=== PATIENT | male | born 1945 | race Caucasian/White ===

== ENCOUNTER 2016-02-17 18:23 | Emergency (ER) | payer MEDICARE, OTHER ==
[2016-02-17] MEDS ORDERED: ACETYLCYSTEIN 20 % 6,000 MG/30 ML VIAL PO ONE (18:35)
[2016-02-17] MEDS ORDERED: HYDROcodone 7.5MG/APAP 325MG 1 EA TAB PO ONE (18:35)
[2016-02-17] MEDS ORDERED: SODIUM CHLORIDE 0.9% 1000ML 1,000 ML IVS ONE (18:36)
--- NOTE | 2016-02-17 19:27 | CT ---
EXAM DESCRIPTION: CT CHEST WITH INTRAVENOUS CONTRAST CLINICAL HISTORY: Elevated D-dimer and right-sided chest pain. Evaluation for pulmonary embolism COMPARISON: Chest x-ray done on the same day. TECHNIQUE: CT of the chest was performed with intravenous contrast using pulmonary embolism protocol, followed by CTA of the pulmonary arterial vasculature, with 3D reconstruction of the pulmonary arterial vasculature. The patient was injected with intravenous contrast. FINDINGS: There are no filling defects in the main pulmonary trunk, first order or the visualized lower order branches of the bilateral pulmonary arteries, to suggest pulmonary embolism. There is no evidence of clinically significant thoracic aortic aneurysm or thoracic aortic dissection. There is no evidence of clinically significant pericardial effusion. There are no airspace infiltrates, pleural effusions or pneumothoraces in the visualized lung molina. Few benign subcentimeter calcified granulomas are seen in the lung molina. There is no pathological axillary, supraclavicular, mediastinal or hilar lymphadenopathy. The visualized thoracic bony ribcage appears unremarkable. The thoracic spine shows mild degenerative change. There is a small hiatal hernia. The visualized upper abdominal structures seen on the exam appear unremarkable. IMPRESSION: There is no pulmonary embolism, airspace infiltrates or pleural effusions. There is no thoracic aortic aneurysm or dissection. Electronically signed by: Phil Dukes MD 02/17/2016 19:25
[2016-02-17 19:48] VITALS: O2SAT 99
[2016-02-17] MEDS ORDERED: predniSONE 20 MG TAB PO ONE (19:54)
--- NOTE | 2016-02-17 19:59 | ED.PDOC ---
History of Present Illness - General Chief Complaint: Chest Pain/DE Stated Complaint: chest pain Time Seen by Provider: 02/17/16 18:30 Source: patient Exam Limitations: no limitations - History of Present Illness Initial Comments: the patient is a 70-year-old male presenting secondary to right lateral chest pain with breathing and coughing. This started less than 24 hours ago. Cough is nonproductive. No fevers. He went clinic and had lab work performed as well as a chest x-ray. Lab work is reassuring with the exception that the d-dimer is mildly elevated and the chest x-ray is normal. He is sent to the emergency room due to concern for possible pulmonary embolus and evaluation thereof. He does not have any shortness of breath. He does not have any palpitations. He is not taking hormone therapy. He has not had any leg pain or swelling. He has not had a DVT in the past. He has not had any recent immobilization. He is not hypoxic here or short of breath. Pain is to the right lateral rib cage is taking a big deep breath or coughing. There is no tenderness to palpation. There is no obvious bruising. There is no crepitus. Timing/Duration: 24 hours Severity: mild Improving Factors: immobilization Worsening Factors: movement Associated Symptoms: chest pain, cough Allergies/Adverse Reactions: Allergies NO KNOWN ALLERGY Allergy (Verified 02/17/16 18:44) Home Medications: Ambulatory Orders Aspirin [Baby Aspirin] 81 mg PO DAILY 11/07/13 Atorvastatin Calcium [Lipitor] 40 mg PO BEDTIME 11/07/13 Calcium-Magnesium W/ Vitamin D [Citracal Calcium+D Slow R] 1 tab PO DAILY Famotidine [Pepcid Tab] 20 mg PO DAILY 11/07/13 Metoprolol Succinate [Metoprolol Succinate ER] 25 mg PO DAILY 11/07/13 Multiple Vitamins W/ Minerals [Centrum Silver] 1 tab PO DAILY 11/07/13 Valsartan-Hydrochlorothiazide [Valsartan/Hydrochlorothia 320-12.5 mg] 1 tab PO DAILY 11/07/13 Wvoullokpuhlm-Jhwe-Hfnylsbhsf [Fioricet] 1 ea PO Q8H PRN #21 tab 02/17/16 Review of Systems - Review of Systems Constitutional: States: no symptoms reported EENTM: States: no symptoms reported Respiratory: States: cough Cardiology: States: chest pain Gastrointestinal/Abdominal: States: no symptoms reported Genitourinary: States: no symptoms reported Musculoskeletal: States: no symptoms reported Skin: States: no symptoms reported Neurological: States: no symptoms reported Endocrine: States: no symptoms reported All other Systems: No Change from Baseline Past Medical History (General) - Patient Medical History Hx Stroke: No Hx Congestive Heart Failure: No Hx Hypertension: Yes Hx Diabetes: Yes - Vaccination History Hx Influenza Vaccination: Yes - 2015 Hx Pneumococcal Vaccination: Yes - 2013 - Social History Hx Tobacco Use: No Family Medical History - Family History Father Living Status: Age at (years of age): 43 Cause of : [place] Hx Family Hypertension: Yes Physical Exam - Physical Exam General Appearance: Alert, Comfortable, No apparent distress Eye Exam: bilateral normal Ears, Nose, Throat: normal ENT inspection Neck: full range of motion, supple Respiratory: chest non-tender, lungs clear, normal breath sounds, no respiratory distress, no accessory muscle use Cardiovascular/Chest: normal peripheral pulses, regular rate, rhythm, no edema Peripheral Pulses: radial,right: 2+, radial,left: 2+ Gastrointestinal/Abdominal: non tender, soft Rectal Exam: deferred Back Exam: normal inspection, no CVA tenderness Extremity: normal range of motion, non-tender, normal inspection, no pedal edema , normal capillary refill Neurologic: alert, normal mood/affect, oriented x 3 Skin Exam: normal color Comments: Vital Signs - 24 hr 02/17/16 02/17/16 18:23 19:20 Temperature 98.3 F Pulse Rate [ 73 70 Apical] Respiratory 20 20 Rate Blood Pressure 122/67 132/70 [Left Arm] O2 Sat by Pulse 93 L 99 Oximetry Progress - Progress Progress: 02/17/16 20:02 the patient is a 70-year-old male presenting with right-sided pleurisy. Source is uncertain. No evidence overtly of infection at this time. He was given 1 dose of oral prednisone here. He will be written for Fioricet for as needed use. He can use balloons as an incentive spirometer at home. He does need to twist and turn and do stretches to help reduce the pleurisy. He needs to take deep breaths and cough. ER warnings were given for any acute worsening. Otherwise, he needs to follow-up with his primary care doctor early next week. - Results/Orders Results/Orders: EKG shows normal sinus rhythm with a left anterior fascicular block. No acute ST segment changes concerning for ischemia. Chest x-ray appears grossly normal. CBC, CMP, cardiac enzymes and coag panel appear grossly normal. D-dimer is mildly elevated at 300. Laboratory Tests 02/17/16 18:40 PT 11.7 INR 1.040 PTT (SP) 34.0 Creatine Kinase 72 CK-MB (CK-2) 0.8 CK-MB (CK-2) % Not Reportable Troponin I < 0.02 CT angiogram of the chest is negative for any pulmonary embolus or large vessel pathology. No evidence of significant infiltrate. No pneumothorax. Departure - Departure Clinical Impression: Pleurisy without effusion Disposition: Discharge to Home or Self Care Condition: Fair Departure Forms: ED Discharge - Pt. Copy, Patient Portal Self Enrollment Instructions: DI for Pleurisy Activity: increase activity as tolerated Referrals: Casey Salazar III, MD [Primary Care Provider] - 1-2 Weeks Prescriptions: Ervyduhhknual-Uccb-Tipspdrgja [Fioricet] 1 ea PO Q8H PRN #21 tab PRN Reason: Pain Home Medications: Ambulatory Orders Aspirin [Baby Aspirin] 81 mg PO DAILY 11/07/13 Atorvastatin Calcium [Lipitor] 40 mg PO BEDTIME 11/07/13 Calcium-Magnesium W/ Vitamin D [Citracal Calcium+D Slow R] 1 tab PO DAILY Famotidine [Pepcid Tab] 20 mg PO DAILY 11/07/13 Metoprolol Succinate [Metoprolol Succinate ER] 25 mg PO DAILY 11/07/13 Multiple Vitamins W/ Minerals [Centrum Silver] 1 tab PO DAILY 11/07/13 Valsartan-Hydrochlorothiazide [Valsartan/Hydrochlorothia 320-12.5 mg] 1 tab PO DAILY 11/07/13 Basabqgbwfcqq-Opll-Uaebozmfdt [Fioricet] 1 ea PO Q8H PRN #21 tab 02/17/16 Additional Instructions: the patient is a 70-year-old male presenting with right-sided pleurisy. Source is uncertain. No evidence overtly of infection at this time. He was given 1 dose of oral prednisone here. He will be written for Fioricet for as needed use. He can use balloons as an incentive spirometer at home. He does need to twist and turn and do stretches to help reduce the pleurisy. He needs to take deep breaths and cough. ER warnings were given for any acute worsening. Otherwise, he needs to follow-up with his primary care doctor early next week.
[2016-02-17 20:21] VITALS: BP 137/77; TEMP 97.9
== END 2016-02-17 20:21 | disposition home or self-care (01) ==
LOC: ER 18:23
DX: R09.1 Pleurisy (principal); I10 Essential (primary) hypertension; E11.9 Type 2 diabetes mellitus without complications; Z79.82 Long term (current) use of aspirin; Z79.899 Other long term (current) drug therapy; Z82.49 Family history of ischemic heart disease and other diseases of the circulatory system
CPT/HCPCS: 36415; 71020; 71275; 80053; 82550; 82553; 84484; 85025; 85379; 85610; 85730; J7030; J7512

== ENCOUNTER → 2016-05-12 | Outpatient (CLI) | payer MEDICARE, OTHER | LOC: GMAL 10:30 | PROVIDERS: ATTEND Family Medicine | DX: D51.3 Other dietary vitamin B12 deficiency anemia (principal); E55.9 Vitamin D deficiency, unspecified; I10 Essential (primary) hypertension; E11.9 Type 2 diabetes mellitus without complications ==

== ENCOUNTER → 2016-08-18 | Outpatient (CLI) | payer MEDICARE, OTHER | END | disposition home or self-care (01) | LOC: LAB.O 10:10 | PROVIDERS: ATTEND Family Medicine | DX: R74.0 Nonspecific elevation of levels of transaminase and lactic acid dehydrogenase [LDH] (principal) ==

== ENCOUNTER → 2016-11-23 | Outpatient (CLI) | payer MEDICARE, OTHER | END | disposition home or self-care (01) | LOC: GMAL 10:34 | PROVIDERS: ATTEND Family Medicine | DX: Z12.5 Encounter for screening for malignant neoplasm of prostate (principal) ==

== ENCOUNTER → 2016-12-01 | Outpatient (CLI) | payer MEDICARE, OTHER | END | disposition home or self-care (01) | LOC: GMAL 14:29 | PROVIDERS: ATTEND Family Medicine | DX: M10.9 Gout, unspecified (principal) ==

== ENCOUNTER → 2017-05-17 | Outpatient (CLI) | payer MEDICARE, OTHER | LOC: GMAL 10:43 | PROVIDERS: ATTEND Family Medicine | DX: E53.8 Deficiency of other specified B group vitamins (principal); E55.9 Vitamin D deficiency, unspecified; Z79.899 Other long term (current) drug therapy ==

== ENCOUNTER 2017-05-20 17:02 | Emergency (ER) | payer MEDICARE, OTHER ==
[2017-05-20] MEDS ORDERED: ACETAMINOPHEN 325 MG TAB PO ONE (17:26)
--- NOTE | 2017-05-20 17:28 | ED.PDOC ---
History of Present Illness - General Chief Complaint: Fever Stated Complaint: Fever, confusion Time Seen by Provider: 05/20/17 17:18 Source: patient, family Exam Limitations: no limitations - History of Present Illness Initial Comments: Patient presents with a fever. He said he got home just [employer] and became confused. His said that he didn't act like he knew where he was. That has since resolved. He has urinary hesitancy that he says is chronic. He denies dysuria or freqency. Denies hematuria. No cough/dyspnea/runny nose. No other complaints today. Timing/Duration: resolved prior to arrival Severity: moderate Improving Factors: nothing Worsening Factors: nothing Associated Symptoms: denies symptoms Allergies/Adverse Reactions: Allergies NO KNOWN ALLERGY Allergy (Verified 05/20/17 17:15) Home Medications: Ambulatory Orders Aspirin [Baby Aspirin] 81 mg PO DAILY 11/07/13 Atorvastatin Calcium [Lipitor] 40 mg PO BEDTIME 11/07/13 Calcium-Magnesium W/ Vitamin D [Citracal Calcium+D Slow R] 1 tab PO DAILY Famotidine [Pepcid Tab] 20 mg PO DAILY 11/07/13 Metoprolol Succinate [Metoprolol Succinate ER] 25 mg PO DAILY 11/07/13 Multiple Vitamins W/ Minerals [Centrum Silver] 1 tab PO DAILY 11/07/13 Valsartan-Hydrochlorothiazide [Valsartan/Hydrochlorothia 320-12.5 mg] 1 tab PO DAILY 11/07/13 Whifdbtgavqur-Vtty-Rjngnvcona [Fioricet] 1 ea PO Q8H PRN #21 tab 02/17/16 Allopurinol [Zyloprim] 100 mg PO DAILY 05/20/17 Azithromycin 250 mg PO DAILY #4 tab 05/20/17 metFORMIN HCL [Glucophage] 500 mg PO BID 05/20/17 Review of Systems - Review of Systems Constitutional: States: see HPI EENTM: States: no symptoms reported Respiratory: States: no symptoms reported Cardiology: States: no symptoms reported Gastrointestinal/Abdominal: States: no symptoms reported Genitourinary: States: no symptoms reported Musculoskeletal: States: no symptoms reported Skin: States: no symptoms reported Neurological: States: see HPI Endocrine: States: no symptoms reported Hematologic/Lymphatic: States: no symptoms reported Past Medical History (General) - Patient Medical History Hx Stroke: No Hx Congestive Heart Failure: No Hx Hypertension: Yes Hx Diabetes: Yes Surgical History: other - Vaccination History Hx Influenza Vaccination: Yes Hx Pneumococcal Vaccination: Yes - Social History Hx Tobacco Use: No Hx Alcohol Use: No Family Medical History - Family History Father Living Status: Age at (years of age): 43 Cause of : [place] Hx Family Hypertension: Yes Physical Exam - Physical Exam General Appearance: Alert Eye Exam: bilateral normal Ears, Nose, Throat: normal ENT inspection Neck: non-tender, full range of motion, supple Respiratory: chest non-tender, lungs clear, normal breath sounds Cardiovascular/Chest: normal peripheral pulses, regular rate, rhythm, no edema Gastrointestinal/Abdominal: normal bowel sounds, non tender, soft Back Exam: no CVA tenderness Extremity: normal range of motion, non-tender 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, no motor/sensory deficits, alert, normal mood/affect, oriented x 3 Skin Exam: normal color Lymphatic: no adenopathy Progress - Progress Progress: 05/20/17 20:03 Laboratory Tests 05/20/17 05/20/17 05/20/17 17:30 17:39 17:39 WBC 12.2 H RBC 4.03 L Hgb 12.5 L Hct 37.2 L MCV 92.2 MCH 31.0 MCHC 33.6 RDW 13.6 Plt Count 176 MPV 8.7 Absolute Neuts (auto) 10.50 H Absolute Lymphs (auto) 0.70 L Absolute Monos (auto) 0.80 Absolute Eos (auto) 0.10 Absolute Basos (auto) 0.10 Neutrophils % 86.3 H Lymphocytes % 5.8 L Monocytes % 6.6 Eosinophils % 0.5 L Basophils % 0.8 Sodium 135 Potassium 4.0 Chloride 101 Carbon Dioxide 22 Anion Gap 16.0 BUN 30 H Creatinine 1.23 BUN/Creatinine Ratio 24.4 H POC Glucose Random Glucose 148 H Serum Osmolality 279.0 Lactic Acid 1.3 Calcium 10.2 Total Bilirubin 0.6 AST 25 ALT 34 Alkaline Phosphatase 58 Serum Total Protein 7.9 Albumin 4.2 Globulin 3.7 H Albumin/Globulin Ratio 1.1 Urine Color Urine Appearance Urine pH Ur Specific [place] Urine Protein Urine Glucose (UA) Urine Ketones Urine Blood Urine Nitrite Urine Bilirubin Urine Urobilinogen Ur Leukocyte Esterase Urine RBC Urine WBC Ur Epithelial Cells Urine Bacteria Group A Strep DNA 05/20/17 05/20/17 05/20/17 17:39 18:00 19:10 WBC RBC Hgb Hct MCV MCH MCHC RDW Plt Count MPV Absolute Neuts (auto) Absolute Lymphs (auto) Absolute Monos (auto) Absolute Eos (auto) Absolute Basos (auto) Neutrophils % Lymphocytes % Monocytes % Eosinophils % Basophils % Sodium Potassium Chloride Carbon Dioxide Anion Gap BUN Creatinine BUN/Creatinine Ratio POC Glucose 142 H Random Glucose Serum Osmolality Lactic Acid Calcium Total Bilirubin AST ALT Alkaline Phosphatase Serum Total Protein Albumin Globulin Albumin/Globulin Ratio Urine Color Yellow Urine Appearance Clear Urine pH 8.5 H Ur Specific [place] 1.020 Urine Protein 30 Urine Glucose (UA) Negative Urine Ketones Negative Urine Blood Trace-intact H Urine Nitrite Negative Urine Bilirubin Negative Urine Urobilinogen 0.2 Ur Leukocyte Esterase Negative Urine RBC 1-3 Urine WBC 0 Ur Epithelial Cells 0 Urine Bacteria 0 Group A Strep DNA Negative Patient disclose later that he had been exposed to strep throat. He was tested here but it was negative. In the absence of another likely source for the fever , he was given Azithromycin in case it was a false negative and also in case there is an occult bacterial infection. This, however, may be viral. I instructed the patient to follow up with his primary physician if the fever lasts longer than 48 more hours. Questions were elicited and answered. Patient voiced understanding and agreement with the plan. Departure - Departure Clinical Impression: Fever in adult Disposition: Discharge to Home or Self Care Departure Forms: ED Discharge - Pt. Copy, Patient Portal Self Enrollment Diet: resume usual diet Activity: increase activity as tolerated Referrals: Casey Salazar III, MD [Primary Care Provider] - 1-2 Weeks Prescriptions: Azithromycin 250 mg PO DAILY #4 tab Home Medications: Ambulatory Orders Aspirin [Baby Aspirin] 81 mg PO DAILY 11/07/13 Atorvastatin Calcium [Lipitor] 40 mg PO BEDTIME 11/07/13 Calcium-Magnesium W/ Vitamin D [Citracal Calcium+D Slow R] 1 tab PO DAILY Famotidine [Pepcid Tab] 20 mg PO DAILY 11/07/13 Metoprolol Succinate [Metoprolol Succinate ER] 25 mg PO DAILY 11/07/13 Multiple Vitamins W/ Minerals [Centrum Silver] 1 tab PO DAILY 11/07/13 Valsartan-Hydrochlorothiazide [Valsartan/Hydrochlorothia 320-12.5 mg] 1 tab PO DAILY 11/07/13 Gwkqmijzugbup-Rtax-Xvfqianadn [Fioricet] 1 ea PO Q8H PRN #21 tab 02/17/16 Allopurinol [Zyloprim] 100 mg PO DAILY 05/20/17 Azithromycin 250 mg PO DAILY #4 tab 05/20/17 metFORMIN HCL [Glucophage] 500 mg PO BID 05/20/17 Additional Instructions: Increase oral fluids. Take medication as prescribed. Use tylenol or ibuprofen for fever relief. Return to the E.R. for worsening of symptoms or new symptoms. See your regular doctor or return to the E.R. if fever lasts longer than 48 more hours.
--- NOTE | 2017-05-20 18:03 | RAD ---
EXAM DESCRIPTION: Chest,2 Views CLINICAL HISTORY: fever COMPARISON: 02/17/2016 FINDINGS: Two views of the chest are submitted. Cardiac silhouette appears normal. No focal parenchymal or pleural disease. No acute bony abnormality. There is no significant pulmonary vascular engorgement. IMPRESSION: No evidence of acute cardiopulmonary disease. Electronically signed by: Gigi Quintana 05/20/2017 6:02 PM CDT
[2017-05-20] MEDS ORDERED: SODIUM CHLORIDE 0.9% 1000ML 1,000 ML IVS ONE (18:18)
[2017-05-20] MEDS ORDERED: AZITHROMYCIN 250 MG TAB PO ONE (18:43)
[2017-05-20 20:07] VITALS: BP 124/75; TEMP 100.8; O2SAT 98
== END 2017-05-20 20:26 | disposition home or self-care (01) ==
LOC: ER 17:02
DX: R50.9 Fever, unspecified (principal); I10 Essential (primary) hypertension; E11.9 Type 2 diabetes mellitus without complications; Z79.82 Long term (current) use of aspirin
CPT/HCPCS: 36415; 71046; 80053; 81001; 82948; 83605; 85025; 87040; 87070; 87651; J7030; Q0144

== ENCOUNTER 2017-05-20 22:41 | Inpatient (IN) | payer MEDICARE, OTHER ==
[2017-05-20] MEDS ORDERED: SODIUM CHLORIDE 0.9% 1000ML 1,000 ML ONE (22:47)
[2017-05-20] MEDS ORDERED: SODIUM CHLORIDE 0.9% 1000ML 1,000 ML IVS ONE (23:00)
[2017-05-20] MEDS ORDERED: cefTRIAXone SODIUM 1 GM in SODIUM CHL 0.9% 50ML MIN-BAG+ 50 ML IVPB ONE (23:34)
[2017-05-20] MEDS ORDERED: VANCOMYCIN HCL INJ 1,000 MG in SODIUM CHLORIDE 0.9% 250ML 250 ML IVPB ONE (23:34)
[2017-05-20] MEDS ORDERED: SODIUM CHL 0.9% 50ML MIN-BAG+ 50 ML IVPB ONE (23:41)
[2017-05-20] MEDS ORDERED: SODIUM CHLORIDE 0.9% 250ML 250 ML ONE (23:41)
[2017-05-20] MEDS ORDERED: cefTRIAXone SODIUM 1 GM VIAL ONE (23:41)
[2017-05-20] MEDS ORDERED: VANCOMYCIN HCL INJ 1,000 MG VIAL IVPB ONE (23:41)
--- NOTE | 2017-05-21 00:13 | CT ---
EXAM: CT head without contrast. INDICATION: AMS. TECHNIQUE: Contiguous axial CT images of the brain. Intravenous contrast: Absent. DLP 859 mGy-cm. This exam was performed according to our departmental dose-optimization program, which includes automated exposure control, adjustment of the mA and/or kV according to patient size and/or use of iterative reconstruction technique. COMPARISON: None. FINDINGS: Subcutaneous: Unremarkable. No acute intracranial hemorrhage. There are mild to moderate periventricular and deep white matter chronic microvascular changes. No midline shift. No mass effect. Ventricles: No hydrocephalus. Crouch-white differentiation preserved. Paranasal sinuses/mastoid air cells: Visualized portions are aerated. Bones/orbits: Visualized portions are unremarkable. IMPRESSION: 1. No CT evidence of acute intracranial hemorrhage. Electronically signed by: Govind Chicas MD 05/21/2017 12:12 AM CDT Workstation: [id number]
--- NOTE | 2017-05-21 00:34 | ED.PDOC ---
History of Present Illness - General Chief Complaint: Fever Stated Complaint: fever, confusion Time Seen by Provider: 05/20/17 22:45 Source: patient, family Exam Limitations: no limitations - History of Present Illness Initial Comments: Patient presents with AMS and fever. He was here earlier today for the same and told to come back if it happens again or worsens. He was started on Azithromycin due to his exposure to strep pharyngitis and unknown source of fever. His family reports they were increasing his fluids and giving him tylenol and Motrin but that his temperature got up to 103. At that point he did not know the date and seemed "out of it". He vomited once and he says that he remembers the vomiting episode. He says he vomited because of some Pedialyte that he was drinking. He says he hates Pedialyte. No other complaints. Denies seizure activity or photophobia. Upon arrival he knows the day but not the month or year. Timing/Duration: 4-6 hours Severity: moderate Improving Factors: nothing Worsening Factors: nothing Associated Symptoms: other - as in HPI Allergies/Adverse Reactions: Allergies NO KNOWN ALLERGY Allergy (Verified 05/20/17 17:15) Home Medications: Ambulatory Orders Aspirin [Baby Aspirin] 81 mg PO DAILY 11/07/13 Atorvastatin Calcium [Lipitor] 40 mg PO BEDTIME 11/07/13 Calcium-Magnesium W/ Vitamin D [Citracal Calcium+D Slow R] 1 tab PO DAILY Famotidine [Pepcid Tab] 20 mg PO DAILY 11/07/13 Metoprolol Succinate [Metoprolol Succinate ER] 25 mg PO DAILY 11/07/13 Multiple Vitamins W/ Minerals [Centrum Silver] 1 tab PO DAILY 11/07/13 Valsartan-Hydrochlorothiazide [Valsartan/Hydrochlorothia 320-12.5 mg] 1 tab PO DAILY 11/07/13 Qrspucsozikey-Bqff-Leaowdtnsu [Fioricet] 1 ea PO Q8H PRN #21 tab 02/17/16 Allopurinol [Zyloprim] 100 mg PO DAILY 05/20/17 Azithromycin 250 mg PO DAILY #4 tab 05/20/17 metFORMIN HCL [Glucophage] 500 mg PO BID 05/20/17 Review of Systems - Review of Systems Constitutional: States: see HPI EENTM: States: no symptoms reported Respiratory: States: no symptoms reported Cardiology: States: no symptoms reported Gastrointestinal/Abdominal: States: see HPI Genitourinary: States: no symptoms reported Musculoskeletal: States: no symptoms reported Skin: States: no symptoms reported Neurological: States: see HPI Endocrine: States: no symptoms reported Hematologic/Lymphatic: States: no symptoms reported Past Medical History (General) - Patient Medical History Hx Seizures: No Hx Stroke: No Hx Dementia: No Hx Asthma: No Hx of COPD: No Hx Cardiac Disorders: No Hx Congestive Heart Failure: No Hx Pacemaker: No Hx Hypertension: Yes Hx Thyroid Disease: No Hx Diabetes: Yes Hx Gastroesophageal Reflux: No Hx Renal Disease: No Hx Cancer: No Hx of HIV: No Hx Hepatitis C: No Hx MRSA: No Surgical History: no surgical history - Vaccination History Hx Tetanus, Diphtheria Vaccination: No Hx Influenza Vaccination: Yes Hx Pneumococcal Vaccination: Yes - Social History Hx Tobacco Use: No Hx Alcohol Use: No Family Medical History - Family History Father Living Status: Age at (years of age): 43 Cause of : [place] Hx Family Hypertension: Yes Physical Exam - Physical Exam General Appearance: Alert, Other - Alert to name and day of the month but not month and year. 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 He and his were informed of the risks and the benefits. At the time of the discussion, he had regained normal mental status and knew the day, month, year, his name, and the location. He and his voiced understanding of the risks and benefits of a lumbar tap and elected to have it done. The lumbar area was prepped and draped in a sterile fashion. Tap was attempted. A small amount of spinal fluid was obtained but not enough to take a sample. A CT head was performed and was negative for acute disease. 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 He was not showing signs of meningitis on physical exam but the AMS and vomiting kept this on the differential. Blood cultures had been taken on the previous visit today. He was admitted to inpatient for fever of unknown origin. Departure - Departure Clinical Impression: Fever of unknown origin Disposition: Admit Patient Condition: Fair Departure Forms: ED Discharge - Pt. Copy, Patient Portal Self Enrollment Diet: other - as per hospitalist Activity: other - as per hospitalist Referrals: Casey Salazar III, MD [Primary Care Provider] - 1-2 Weeks Home Medications: Ambulatory Orders Aspirin [Baby Aspirin] 81 mg PO DAILY 11/07/13 Atorvastatin Calcium [Lipitor] 40 mg PO BEDTIME 11/07/13 Calcium-Magnesium W/ Vitamin D [Citracal Calcium+D Slow R] 1 tab PO DAILY Famotidine [Pepcid Tab] 20 mg PO DAILY 11/07/13 Metoprolol Succinate [Metoprolol Succinate ER] 25 mg PO DAILY 11/07/13 Multiple Vitamins W/ Minerals [Centrum Silver] 1 tab PO DAILY 11/07/13 Valsartan-Hydrochlorothiazide [Valsartan/Hydrochlorothia 320-12.5 mg] 1 tab PO DAILY 11/07/13 Qnkjkrltzyipw-Sdai-Uwazaxwigh [Fioricet] 1 ea PO Q8H PRN #21 tab 02/17/16 Allopurinol [Zyloprim] 100 mg PO DAILY 05/20/17 Azithromycin 250 mg PO DAILY #4 tab 05/20/17 metFORMIN HCL [Glucophage] 500 mg PO BID 05/20/17
--- NOTE | 2017-05-21 00:43 | HP ---
SUPERVISING PHYSICIAN: Portillo Ramey M.D. HISTORY OF PRESENT ILLNESS: Mr. Ahumada is a 72 year-old male patient that initially presented to the E. R. on 05/20/17 earlier in the day complaining of a fever and some mild confusion that occurred just prior to his arrival to the E. R. His noted that he was not acting himself but had resolved prior to going to the E. R. In the E. R., no acute findings were noted other than he was running a fever on admission initially of 103.4. A Strep screen was completed which was negative. After further evaluation by the E. R. physician, it was felt that the patient had a possible Strep infection resulting in his fever and was treated with azithromycin and discharged home. The patient then presented back to the E. R. approximately 3 to 4 hours after discharge initially with continued fever of 100.8. He once again was having some confusion during his fever and was not quite himself, according to his daughter. The patient was somewhat disoriented. He knew where he was but could not remember the year or the date. He had obvious rigors and chills. Further workup in the Emergency Department on the next admission included a lumbar puncture which was unsuccessful with the patient presenting with a mild headache. There was no other meningeal signs. The E. R. physician, Dr. Francois requested that the patient now be admitted to the Medical/Surgical floor for further treatment and evaluation of a fever of unknown origin. He was sent home initially on azithromycin and on this current E. R. visit was given a gram of Rocephin and started on vancomycin for broad spectrum coverage, and now is to be admitted to the Medical/Surgical floor for further evaluation and treatment. Blood cultures were collected on the previous E. R. visit along with Strep cultures which were negative and continued to be negative on the current admission. There was also mention of recent exposure to a grandson within the last week that had a positive Strep pharyngitis. PAST MEDICAL HISTORY: 1. Coronary artery disease. 2. Hypertension with a recent myocardial perfusion study February 2017 showing an ejection fraction of approximately 69%. 3. 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 4. Febrile prostatitis with an elevated PSA in 1999. 5. Type 2 diabetes mellitus on oral medication. 6. Gout. PAST SURGICAL HISTORY: 1. Ventral hernia repair. 2. Left knee arthroscopy in 2006. 3. Squamous cell cancer excised from left hand in 2005. HOME MEDICATIONS: 1. Metformin 500 mg b.i.d. 2. Valsartan/Hydrochlorothiazide 320-12.5 one tablet daily. 3. Multivitamins 1 tablet daily. 4. Metoprolol succinate extended release 25 mg daily. 5. Pepcid 20 mg daily. 6. Calcium with Vitamin D 1 tablet daily. 7. Lipitor 40 mg at bedtime. 8. Aspirin 81 mg daily. 9. Allopurinol 100 mg daily. ALLERGIES: FAMILY HISTORY: Father is at age 42 due to myocardial infarction. Mother at age 36 secondary to blood clot. 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 He lives in [place]. He is . He has a remote history of smoking in his teens briefly. He does drink very frequently but denies any illicit drug use. REVIEW OF SYSTEMS: CONSTITUTIONAL: As noted in the History of Present Illness, fevers, chills, rigors, general malaise. HEENT: Denies any nasal congestion, headache, ear ache, sore throat. Denies any photophobia or neck pain. RESPIRATORY: Denies any shortness of breath, coughing, wheezing. CARDIOVASCULAR: Denies any chest pains, palpitations or syncopal episodes or lower extremity edema. GASTROINTESTINAL: Denies any abdominal pain, constipation, diarrhea. He did have 1 episode of vomiting after being discharged and instructed to drink some Pedialyte. GENITOURINARY: Notes some decreased stream with frequency noted but no dysuria or hematuria. EXTREMITIES: Denies any pain or swelling. NEUROLOGIC: Denies any photophobia, headaches, seizures, ataxia or syncope. PHYSICAL EXAMINATION: VITAL SIGNS: Initially on admission temperature was 103.4, pulse 113, blood pressure 157/75, respirations 20, satting 96% on room air. After administration of Tylenol and Motrin and admission to the Medical/Surgical floor , the patient's temperature was 98.4 with pulse 75. Admission weight 79.5 kg. GENERAL: The patient appears to be comfortable in no acute distress and alert. HEENT: Tympanic membranes are clear bilaterally. Oropharynx is pink. Posterior pharynx was notably erythematous but no lesions or drainage. No cervical adenopathy. Mucosal membranes were moist. NECK: Supple, non-tender. Full range of motion. No jugular venous distention. CHEST: Lungs are clear to auscultation bilaterally without any rhonchi, wheezing or rales. CARDIOVASCULAR: Regular rate and rhythm without appreciable murmurs, gallops, or rubs. ABDOMEN: Soft, non-tender with positive bowel sounds, but obese. EXTREMITIES: No clubbing, cyanosis or edema. NEUROLOGIC: He is alert and oriented times three. Cranial nerves II-XII are grossly intact. Facial features were symmetrical. Extraocular movements are within normal limits. There is no notable nystagmus. No meningeal signs. LABORATORY: White count on admission did show a leukocytosis of 12,100 with hemoglobin 12.1, hematocrit 35.3, platelet count 155,000. Differential did show a left shift. Chemistries showed normal electrolytes with potassium 4.1, BUN 30, creatinine 1.25, calcium 9.4. Serum osmolality 282. Liver functions all showed to be within normal limits. PSA was 1.06. Lactic acid was normal at 1.6. TSH was 0.31. MICROBIOLOGY: Sputum culture pending. Urine culture pending. Influenza A and B was negative for both A and B. Strep screen was negative. Strep culture is pending. RADIOLOGY: Chest x-ray per radiology interpretation showed no evidence of acute cardiopulmonary disease. He also had a head CT and per radiology interpretation no CT evidence of acute intracranial hemorrhage. PROCEDURES: He did have a lumbar puncture attempt in the E. R. but was a dry tap with no specimen submitted for testing. ASSESSMENT: 1. Fever of unknown origin with the patient having a history of febrile prostatitis with cultures pending. 2. Leukocytosis secondary to #1 with sputum culture, urine culture and Streptococcus culture pending. 3. Sepsis secondary to unknown infectious source with the patient having a leukocytosis, acute mental status change, fever, rigors and decreased renal function with the patient having been started on broad spectrum antibiotic coverage with both Rocephin and vancomycin pending final culture results with the patient having a normal lactic acid. 4. Hypertension with last echocardiogram in 2018 showing an ejection fraction of 69%, 5. Diabetes mellitus type 2 on oral therapy. 6. Renal insufficiency likely from some prerenal azotemia and dehydration secondary to ongoing fever. PLAN: The patient is going to be admitted to the Medical/Surgical floor for further treatment, evaluation and close monitoring. Given that he did have a spinal tap, he was started on coverage for broad spectrum empiric therapy but has no obvious meningeal signs at this point, but will continue the Rocephin 2 grams every 12 hours and vancomycin every 24 hours with close monitoring. He will have every 4 hours neuro checks. Will cover his fevers with Tylenol and Motrin as needed. Will await culture results of sputum, urine and throat culture. He does have a history of febrile prostatitis and will at this point defer rectal exam and await culture results of the urine to further target possible antibiotic therapy as well as await blood culture results for at least 24 to 48 hours. Anticipate length of stay to be at least 2 to 3 days until the patient is at least afebrile for 24 to 48 hours. Will continue to monitor culture results and closely monitor for a source of infection. He will be on IV fluids, DVT prophylaxis and insulin sliding scale as per protocol. Once afebrile and clinically stable, the patient certainly can be discharged to continue with outpatient treatment plan and have close followup with Dr. Salazar, his primary care provider. Until discharge, will continue to monitor and treat appropriately. Dr. Ramey was available for consultation. #[id number] [facility]
[2017-05-21] MEDS ORDERED: DEXTROSE 50% 25 GM/50 ML SYG IV PRN (01:32)
[2017-05-21] MEDS ORDERED: GLUCAGON INJ 1 MG VIAL SUBCU PRN (01:32)
[2017-05-21] MEDS ORDERED: VANCOMYCIN PER PHARMACY INJ SCH (02:00)
[2017-05-21] MEDS ORDERED: KCL 20MEQ/0.45% NS 1,000 ML IVS PRN (02:05)
[2017-05-21] MEDS ORDERED: cefTRIAXone SODIUM 1 GM in SODIUM CHL 0.9% 50ML MIN-BAG+ 50 ML IVPB ONE (04:30)
[2017-05-21] MEDS ORDERED: IBUPROFEN 400 MG TAB PO ONE (04:31)
[2017-05-21] MEDS ORDERED: SODIUM CHL 0.9% 50ML MIN-BAG+ 50 ML IVPB ONE (04:37)
[2017-05-21] MEDS ORDERED: cefTRIAXone SODIUM 1 GM VIAL ONE (04:38)
[2017-05-21] MEDS: IV SET AND CAP CHANGE INJ INJ SCH (06:21)
[2017-05-21] MEDS: INSULIN LISPRO 100 UNITS/ML PEN SUBCU SCH ×4 (07:13→21:09)
--- NOTE | 2017-05-21 08:26 | PCM.CORE ---
Physician DVT/VTE - Nurse DVT Assessment & Total Each Risk Factor Represents 3 Points: Medical PT with Hx of NE, CHF, Severe infection/sepsis Each Risk Factor Represents 2 Points: Age 60-74 Each Risk Factor is 1 Point: Obesity (BMI >25) DVT Assessment Score: 6 - 5 or more Very High Risk Treatments: Early Ambulation *, Sequential Compression Device Pharmacological: Enoxaparin 40mg SQ Daily
[2017-05-21] MEDS: ENOXAPARIN SODIUM 40 MG/0.4 ML SYG SUBCU SCH ×2 (08:44→08:51)
[2017-05-21] MEDS: METOPROLOL SUCCINATE XL 25 MG TAB PO SCH (08:58)
[2017-05-21] MEDS: CALCIUM CARBONATE-VITAMIN D 500 MG TAB PO SCH (08:58)
[2017-05-21] MEDS: ASPIRIN (CHEWABLE) 81 MG TAB PO SCH (08:58)
[2017-05-21] MEDS: AZITHROMYCIN 250 MG TAB PO SCH (08:59)
[2017-05-21] MEDS: VALSARTAN 80 MG TAB PO SCH (08:59)
[2017-05-21] MEDS: ALLOPURINOL 100 MG TAB PO SCH (08:59)
[2017-05-21] MEDS: hydroCHLOROthiazide 12.5 MG CAP PO SCH (08:59)
[2017-05-21] MEDS: FAMOTIDINE 20 MG TAB PO SCH (08:59)
[2017-05-21] MEDS ORDERED: NON-FORMULARY MEDICATION 1 EA MIS (Valsartan-Hydrochlorothiazide [Valsartan/Hydrochlorothi PO SCH (09:00)
[2017-05-21] MEDS ORDERED: SODIUM CHL 0.9% 100ML MINI-BAG 100 ML IVPB ONE ×2 (10:32→19:44)
[2017-05-21] MEDS: cefTRIAXone SODIUM 2 GM in SODIUM CHL 0.9% 100ML MINI-BAG 100 ML IVPB SCH ×2 (10:37→23:38)
[2017-05-21] MEDS ORDERED: KETOROLAC TROMETHAMINE INJ 30 MG/ML VIAL IV ONE (13:01)
[2017-05-21] MEDS: ACETAMINOPHEN 325 MG TAB PO PRN (14:28)
--- NOTE | 2017-05-21 15:08 | RAD ---
EXAM DESCRIPTION: Chest,1 View CLINICAL HISTORY:72 years Male, SOB, Wheezing Comparison: May 20, 2017 FINDINGS: No focal lung consolidation. No pleural effusion. No pneumothorax. Cardiac and mediastinal silhouette is unremarkable. No acute osseous abnormality. Soft tissues are unremarkable. IMPRESSION: No acute findings. No focal lung consolidation. Electronically signed by: Sravan Sinclair MD 05/21/2017 3:07 PM CDT
[2017-05-21] MEDS: IBUPROFEN 400 MG TAB PO PRN (15:31)
[2017-05-21] MEDS ORDERED: VANCOMYCIN HCL INJ 500 MG VIAL ONE (19:47)
[2017-05-21] MEDS ORDERED: SODIUM CHLORIDE 0.9% 250ML 250 ML ONE ×2 (19:47→21:16)
[2017-05-21] MEDS ORDERED: VANCOMYCIN HCL INJ 1,000 MG VIAL IVPB ONE (19:47)
[2017-05-21] MEDS: ATORVASTATIN 20 MG TAB PO SCH (20:42)
[2017-05-21] MEDS ORDERED: VANCOMYCIN HCL INJ 1,000 MG, VANCOMYCIN HCL INJ 250 MG in SODIUM CHLORIDE 0.9% 250ML 25... IVPB SCH (21:00)
[2017-05-21] MEDS ORDERED: ALBUTEROL SULFATE 2.5 MG/3 ML VIAL NEB ONE (23:59)
[2017-05-22] MEDS: ACETAMINOPHEN 325 MG TAB PO PRN ×3 (00:22→23:50)
[2017-05-22] MEDS: ALBUTEROL SULFATE 2.5 MG/3 ML VIAL NEB PRN ×2 (00:30→06:05)
[2017-05-22] MEDS: IBUPROFEN 400 MG TAB PO PRN ×2 (01:44→14:19)
[2017-05-22] MEDS: FAMOTIDINE 20 MG TAB PO SCH (06:46)
[2017-05-22] MEDS: INSULIN LISPRO 100 UNITS/ML PEN SUBCU SCH ×4 (07:06→20:59)
--- NOTE | 2017-05-22 07:13 | RAD ---
EXAM DESCRIPTION: Chest,2 Views CLINICAL HISTORY: Wheezing COMPARISON: May 21, 2017 FINDINGS: The heart is at the upper limits of normal size, stable. Mediastinal contours are otherwise unremarkable. Coarse interstitial prominence is noted in the left lung base with limited visualization of the left hemidiaphragm, new or worse from yesterday's exam. The right lung is clear. Mild blunting of the costophrenic angles is noted bilaterally, also new from yesterday. The bronchovascular markings are within normal limits, and the lungs are not hyperinflated. There is no pneumothorax or acute fracture. IMPRESSION: Abnormal appearance of the left lung base, nonspecific and new or worse from yesterday. Differential considerations include subsegmental atelectasis versus developing pneumonia or edema. Possible tiny bilateral pleural effusions. Electronically signed by: Joe Rodríguez MD 05/22/2017 7:11 AM CDT
[2017-05-22] MEDS: METOPROLOL SUCCINATE XL 25 MG TAB PO SCH (08:04)
[2017-05-22] MEDS: ASPIRIN (CHEWABLE) 81 MG TAB PO SCH (08:04)
[2017-05-22] MEDS: ENOXAPARIN SODIUM 40 MG/0.4 ML SYG SUBCU SCH (08:04)
[2017-05-22] MEDS: VALSARTAN 80 MG TAB PO SCH (08:05)
[2017-05-22] MEDS: CALCIUM CARBONATE-VITAMIN D 500 MG TAB PO SCH (08:05)
[2017-05-22] MEDS: ALLOPURINOL 100 MG TAB PO SCH (08:05)
[2017-05-22] MEDS: AZITHROMYCIN 250 MG TAB PO SCH (08:05)
[2017-05-22] MEDS: hydroCHLOROthiazide 12.5 MG CAP PO SCH (08:05)
[2017-05-22] MEDS ORDERED: KCL 20MEQ/0.45% NS 1,000 ML IVS ONE (08:46)
[2017-05-22] MEDS: guaiFENesin ER TAB 600 MG TAB PO SCH ×2 (08:53→20:29)
[2017-05-22] MEDS ORDERED: AZITHROMYCIN 250 MG TAB PO ONE (09:00)
[2017-05-22] MEDS ORDERED: SODIUM CHL 0.9% 100ML MINI-BAG 100 ML IVPB ONE ×2 (09:53→19:15)
[2017-05-22] MEDS: BIFIDOBACTERIUM INFANTIS 4 MG CAP PO SCH (09:55)
[2017-05-22] MEDS: TAMSULOSIN 0.4 MG CAP PO SCH (10:40)
[2017-05-22] MEDS: cefTRIAXone SODIUM 2 GM in SODIUM CHL 0.9% 100ML MINI-BAG 100 ML IVPB SCH ×2 (10:46→22:48)
[2017-05-22] MEDS: IPRATROPIUM/ALBUTEROL 3 ML VIAL NEB SCH ×3 (12:13→20:25)
--- NOTE | 2017-05-22 12:25 | PN ---
SUPERVISING PHYSICIAN: Ever Granado MD DATE: 05/22/17 SUBJECTIVE: The patient notes he has a cough and had some weakness through the night. He is still running a fever, but not as significant as previous. He has had no nausea or vomiting, no chest pains. OBJECTIVE: VITAL SIGNS: T-max 103.2. Pulse 69. Blood pressure 100/55. Respirations 16 to 24. Saturation 92% on room air. I&Os show a positive balance of 88 with 2092 in, 2004 out. Weight 79.5 kg. CHEST: Lung sounds are diminished towards the bases with some faint rhonchi heard on the more lateral posterior aspect on the right lower lobe. No obvious wheezing. HEART: Regular rate and rhythm. ABDOMEN: Obese, but soft and nontender. Positive bowel sounds. EXTREMITIES: No cyanosis, clubbing or edema. NEUROLOGIC: Alert and oriented times three. LABORATORY: White count has gone up to 18,200 from previous day of 14,800 and initially on admission of 12,100. Hemoglobin and hematocrit are stable at 10.3 and 30.7 with platelet count 113,000. Differential does show a left shift. Chemistries today show normal electrolytes with BUN 30, creatinine up to 1.51, calcium 8.3. Blood sugars from 118 and 155. MICROBIOLOGY: Urine culture from cath specimen yesterday shows a gram positive cocci. Blood cultures remain negative after 24 hours. Influenza swab was negative for A and B. Urine culture from initial specimen was canceled due to the specimen was collected yesterday. RADIOLOGY: Chest x-ray yesterday showed no acute findings or focal lung consolidations. Today, repeat chest x-ray this morning per radiologic interpretation shows some abnormal appearance of the left lung base, nonspecific , with new worsening from previous exams, possible consideration for atelectasis versus developing pneumonia or edema with possible tiny bilateral pleural effusions. ASSESSMENT: 1. Left lower lobe pneumonia, community acquired, with cultures pending. 2. Fever secondary to #1 with leukocytosis with current urine culture cultures showing a gram positive cocci, possibly primary source for the developing pneumonia as noted in #1, resulting in a urinary tract infection versus early prostatitis. 3. Sepsis secondary to community acquired pneumonia and underlying urinary tract infection with questionable prostatitis with gram positive cocci pending final culture results with the patient having been on antibiotics to include both Rocephin and vancomycin and azithromycin. 4. Hypertension with last echocardiogram in 2018 showing an ejection fraction of 69%, stable. 5. Diabetes mellitus, type 2, on oral therapy, stable. 6. Renal insufficiency with some prerenal azotemia secondary to dehydration and underlying fever, showing continuation in elevation, probably exacerbated by administration of vancomycin needing close monitoring and further fluid management. 7. Polyuria/dysuria secondary to possible prostatitis, enlarged prostate and an underlying urinary tract infection. PLAN: The patient now has an identified source of infection considered to be the underlying pneumonia in the left lower lobe with questionable prostatitis and urinary tract infection with gram positive cocci pending. Given those results, we will continue with Rocephin and azithromycin and stop the vancomycin pending further culture results. We will target antibiotic therapy as appropriate based on final culture results. We will start him on aggressive pulmonary hygiene with q.i.d. DuoNeb treatments, chest percussive therapy, await sputum culture. Shell catheter will be removed today after being started on Flomax. We will anticipate at least another 24 to 48 hours of aggressive treatment and once the patient is afebrile for at least 24 hours, possibly 48 hours, and depending on final cultures from both urine and blood and any other specimens collected, we will anticipate discharge Monday or Monday with continued abnormal based on clinical findings. We will plan to reevaluate in the morning with a CBC and BMP. Until discharge, we will continue to monitor the patient closely and treat appropriately. #[id number] [facility]
[2017-05-22] MEDS: SODIUM CHLORIDE 0.9% (FLUSH) 10 ML SYG IV PRN (20:29)
[2017-05-22] MEDS: ATORVASTATIN 20 MG TAB PO SCH (20:29)
[2017-05-23] MEDS: IBUPROFEN 400 MG TAB PO PRN ×2 (00:54→21:52)
[2017-05-23] MEDS: FAMOTIDINE 20 MG TAB PO SCH (06:01)
--- NOTE | 2017-05-23 07:17 | RAD ---
EXAM DESCRIPTION: XR CHEST 2 VIEWS CLINICAL HISTORY: Left lower lobe pneumonia COMPARISON: 05/22/2017 TECHNIQUE: PA/lateral FINDINGS: Heart size is normal. Calcified granuloma in the right lower lobe. No pulmonary edema, infiltrate or effusion. Improved appearance compared to previous study. No acute bony abnormality. IMPRESSION: No acute cardiopulmonary process. Electronically signed by: Ever Gates MD 05/23/2017 7:16 AM CDT
[2017-05-23] MEDS: INSULIN LISPRO 100 UNITS/ML PEN SUBCU SCH ×4 (08:39→21:04)
[2017-05-23] MEDS: IPRATROPIUM/ALBUTEROL 3 ML VIAL NEB SCH ×4 (08:52→20:30)
[2017-05-23] MEDS: CALCIUM CARBONATE-VITAMIN D 500 MG TAB PO SCH (09:14)
[2017-05-23] MEDS: ENOXAPARIN SODIUM 40 MG/0.4 ML SYG SUBCU SCH (09:14)
[2017-05-23] MEDS: AZITHROMYCIN 250 MG TAB PO SCH (09:14)
[2017-05-23] MEDS: VALSARTAN 80 MG TAB PO SCH (09:14)
[2017-05-23] MEDS: TAMSULOSIN 0.4 MG CAP PO SCH (09:14)
[2017-05-23] MEDS: METOPROLOL SUCCINATE XL 25 MG TAB PO SCH (09:14)
[2017-05-23] MEDS: ALLOPURINOL 100 MG TAB PO SCH (09:14)
[2017-05-23] MEDS: BIFIDOBACTERIUM INFANTIS 4 MG CAP PO SCH (09:15)
[2017-05-23] MEDS: guaiFENesin ER TAB 600 MG TAB PO SCH ×2 (09:15→20:48)
[2017-05-23] MEDS: ASPIRIN (CHEWABLE) 81 MG TAB PO SCH (09:15)
[2017-05-23] MEDS: hydroCHLOROthiazide 12.5 MG CAP PO SCH (09:15)
[2017-05-23] MEDS ORDERED: SODIUM CHL 0.9% 100ML MINI-BAG 100 ML IVPB ONE ×2 (10:29→19:23)
[2017-05-23] MEDS: cefTRIAXone SODIUM 2 GM in SODIUM CHL 0.9% 100ML MINI-BAG 100 ML IVPB SCH ×2 (10:31→22:35)
[2017-05-23] MEDS: ACETAMINOPHEN 325 MG TAB PO PRN ×2 (13:30→20:48)
[2017-05-23] MEDS ORDERED: VANCOMYCIN HCL INJ 500 MG VIAL ONE (16:23)
[2017-05-23] MEDS ORDERED: SODIUM CHLORIDE 0.9% 250ML 250 ML ONE (16:24)
[2017-05-23] MEDS ORDERED: VANCOMYCIN HCL INJ 1,000 MG VIAL IVPB ONE (16:24)
[2017-05-23] MEDS: VANCOMYCIN HCL INJ 1,000 MG, VANCOMYCIN HCL INJ 250 MG in SODIUM CHLORIDE 0.9% 250ML 25... IVPB SCH (16:30)
[2017-05-23] MEDS ORDERED: POTASSIUM CHLORIDE 20 MEQ TAB PO ONE (17:16)
--- NOTE | 2017-05-23 18:13 | PN ---
DATE: 05/23/17 SUPERVISING PHYSICIAN: Ever Granado MD SUBJECTIVE: The patient is sitting up in his hospital bed. He has no complaints of shortness of breath, nausea or vomiting, diarrhea or constipation , dysuria or hematuria. He has occasional shortness of breath with some exertion but that is much improved over the last few days. OBJECTIVE: VITAL SIGNS: T-max 24 hours is 99.1, pulse rate 83, blood pressure 137/69, respiratory rate 20, 02 saturation 96% on room air. RESPIRATORY: Some coarse breath sounds throughout, initially there was an expiratory wheeze in the right upper airways but clears with coughing. CARDIAC: Regular rate and rhythm. ABDOMEN: Soft, non-tender, nondistended. Bowel sounds are positive. NEUROLOGICAL: He is awake, alert, and oriented x3. LABORATORY: WBC 11,600 with hemoglobin 9.7 and hematocrit 28.7. Platelet count 106,000. Sodium 135, potassium 3.2, chloride 107, carbon dioxide 21, BUN 25, creatinine 1.27. Blood sugars have run between 127 and 231. Calcium 8. His preliminary blood cultures show no growth after 48 hours. Urine culture shows enterococcus faecalis sensitive to vancomycin. Chest x-ray shows no acute cardiopulmonary processes. All other labs and films have been reviewed via the EMR. ASSESSMENT: 1. Left lower lobe pneumonia, community acquired, with cultures pending. Preliminary blood cultures are negative. 2. Fever secondary to #1 with leukocytosis that is improving. Current urine culture culture shows enterococcus faecalis. 3. Urinary tract infection with enterococcus faecalis. May consider early prostatitis as a differential. 4. Sepsis secondary to community acquired pneumonia as well as urinary tract infection and/or questionable prostatitis. Patient is on Rocephin and azithromycin and previously on vancomycin. 5. Hypertension with last echocardiogram in 2018 showing an ejection fraction of 69%, stable. 6. Diabetes mellitus, type 2. 7. Renal insufficiency with some prerenal azotemia secondary to dehydration and underlying fever. 8. Polyuria/dysuria secondary to possible prostatitis, enlarged prostate and underlying urinary tract infection. PLAN: We will continue present supportive care. I will continue his Rocephin; and azithromycin. At the recommendation of Dr. Salazar, we will restart patient on vancomycin. I will call Dr. Jung, Infectious Disease in the morning to get her recommendations on treatment of both the urinary tract infection as well as the community acquired pneumonia and continued elevation in temperature. I have repeated labs for tomorrow. Hopefully, he can be discharged home on oral therapy with close followup with Dr. Salazar in regards to his urinary tract infection/prostatitis. We will continue to monitor him closely and follow as needed. Dr. Granado is the collaborating physician available for consultation and available for consultation. #[id number] [facility]
[2017-05-23] MEDS: ATORVASTATIN 20 MG TAB PO SCH (20:48)
[2017-05-23] MEDS: SODIUM CHLORIDE 0.9% (FLUSH) 10 ML SYG IV PRN (22:35)
[2017-05-24] MEDS: IV SET AND CAP CHANGE INJ INJ SCH (01:54)
[2017-05-24] MEDS: FAMOTIDINE 20 MG TAB PO SCH (06:02)
[2017-05-24] MEDS: INSULIN LISPRO 100 UNITS/ML PEN SUBCU SCH ×4 (07:47→21:03)
[2017-05-24] MEDS ORDERED: POTASSIUM CHLORIDE 20 MEQ TAB PO ONE (08:10)
[2017-05-24] MEDS: IPRATROPIUM/ALBUTEROL 3 ML VIAL NEB SCH ×4 (08:23→20:05)
[2017-05-24] MEDS ORDERED: SODIUM CHL 0.9% 100ML MINI-BAG 100 ML IVPB ONE ×2 (08:36→19:49)
[2017-05-24] MEDS: ASPIRIN (CHEWABLE) 81 MG TAB PO SCH (08:43)
[2017-05-24] MEDS: BIFIDOBACTERIUM INFANTIS 4 MG CAP PO SCH (08:43)
[2017-05-24] MEDS: CALCIUM CARBONATE-VITAMIN D 500 MG TAB PO SCH (08:44)
[2017-05-24] MEDS: AZITHROMYCIN 250 MG TAB PO SCH (08:44)
[2017-05-24] MEDS: METOPROLOL SUCCINATE XL 25 MG TAB PO SCH (08:44)
[2017-05-24] MEDS: guaiFENesin ER TAB 600 MG TAB PO SCH ×2 (08:44→21:03)
[2017-05-24] MEDS: ALLOPURINOL 100 MG TAB PO SCH (08:45)
[2017-05-24] MEDS: VALSARTAN 80 MG TAB PO SCH (08:45)
[2017-05-24] MEDS: TAMSULOSIN 0.4 MG CAP PO SCH (08:45)
[2017-05-24] MEDS: hydroCHLOROthiazide 12.5 MG CAP PO SCH (08:45)
[2017-05-24] MEDS: ENOXAPARIN SODIUM 40 MG/0.4 ML SYG SUBCU SCH (09:00)
[2017-05-24] MEDS: ACETAMINOPHEN 325 MG TAB PO PRN ×2 (10:21→22:56)
[2017-05-24] MEDS: cefTRIAXone SODIUM 2 GM in SODIUM CHL 0.9% 100ML MINI-BAG 100 ML IVPB SCH ×2 (11:19→22:34)
[2017-05-24] MEDS: IBUPROFEN 400 MG TAB PO PRN (11:25)
[2017-05-24] MEDS ORDERED: SODIUM CHLORIDE 0.9% 250ML 250 ML ONE ×2 (16:11→16:18)
[2017-05-24] MEDS ORDERED: VANCOMYCIN HCL INJ 500 MG VIAL ONE ×2 (16:11→16:18)
[2017-05-24] MEDS ORDERED: VANCOMYCIN HCL INJ 1,000 MG VIAL IVPB ONE (16:18)
[2017-05-24] MEDS: VANCOMYCIN HCL INJ 1,000 MG, VANCOMYCIN HCL INJ 250 MG in SODIUM CHLORIDE 0.9% 250ML 25... IVPB SCH (16:31)
--- NOTE | 2017-05-24 20:44 | PN ---
DATE: 05/24/17 SUPERVISING PHYSICIAN: Ever Granado M.D. SUBJECTIVE: The patient is sitting up in his hospital bed. He has family at his bedside. Denies any chest pain, nausea or vomiting, shortness of breath. He does complain of a mild cough but it has improved over the last several days. OBJECTIVE: VITAL SIGNS: T max 24 hours is 102.9 with heart rate 80, blood pressure 117/65, respiratory rate 20, O2 sat 96% on room air. RESPIRATORY: Essentially clear to auscultation bilaterally. CARDIAC: Regular rate and rhythm. GASTROINTESTINAL: Abdomen is soft, nondistended, non-tender. Bowel sounds are positive. EXTREMITIES: No cyanosis, clubbing or edema. NEUROLOGIC: He is awake, alert and oriented times three. LABORATORY: WBCs have normalized at 8.7 with hemoglobin 10.2, hematocrit 30.1, neutrophils 78.5. Blood sugars have run between 115 and 167. Sodium 140, potassium 3.5, chloride 110, carbon dioxide 22, BUN 20, creatinine 1.21. AST 91 , ALT 115. Preliminary blood cultures show no growth after 3 days. All other labs and films have been reviewed via the EMR. ASSESSMENT: 1. Left lower lobe pneumonia, community acquired, with preliminary blood cultures showing no growth. 2. Fever secondary to #1 with leukocytosis that is improving. Current urine culture culture shows enterococcus faecalis. 3. Urinary tract infection with enterococcus faecalis. May consider early prostatitis as a differential. 4. Sepsis secondary to community acquired pneumonia as well as urinary tract infection and/or questionable prostatitis. Patient is on Rocephin and azithromycin and previously on vancomycin. 5. Hypertension with last echocardiogram in 2018 showing an ejection fraction of 69%, stable. 6. Diabetes mellitus, type 2. 7. Renal insufficiency with some prerenal azotemia secondary to dehydration and underlying fever. 8. Polyuria/dysuria secondary to possible prostatitis, enlarged prostate and underlying urinary tract infection. PLAN: We will continue present supportive care. He is receiving Rocephin, azithromycin and vancomycin. Dr. Tee, Infectious Diseases doctor in [place] was unavailable today and I will talk to her in the morning as far as discharge planning for his antibiotics. He continues to improve daily and we continue to encourage good pulmonary hygiene. His potassium was slightly low today so I gave him some oral supplementation. Will recheck it in the morning. He can hopefully be discharged tomorrow with close followup with Dr. Salazar. It will depend on what Dr. Tee recommends as far as his discharge antibiotics. Otherwise we will continue to monitor the patient closely and follow as needed. Dr. Granado is the collaborating physician available for consultation. #[id number] [facility]
[2017-05-24] MEDS: ATORVASTATIN 20 MG TAB PO SCH (21:03)
[2017-05-24] MEDS: SODIUM CHLORIDE 0.9% (FLUSH) 10 ML SYG IV PRN (21:03)
[2017-05-25] MEDS: IBUPROFEN 400 MG TAB PO PRN ×2 (00:11→17:23)
[2017-05-25] MEDS: FAMOTIDINE 20 MG TAB PO SCH (06:03)
[2017-05-25] MEDS: INSULIN LISPRO 100 UNITS/ML PEN SUBCU SCH ×4 (07:23→21:20)
[2017-05-25] MEDS ORDERED: SODIUM CHL 0.9% 100ML MINI-BAG 0 ML IVPB ONE (07:44)
[2017-05-25] MEDS: IPRATROPIUM/ALBUTEROL 3 ML VIAL NEB SCH ×3 (08:30→19:30)
[2017-05-25] MEDS: guaiFENesin ER TAB 600 MG TAB PO SCH ×2 (09:54→20:37)
[2017-05-25] MEDS: ASPIRIN (CHEWABLE) 81 MG TAB PO SCH (09:54)
[2017-05-25] MEDS: CALCIUM CARBONATE-VITAMIN D 500 MG TAB PO SCH (09:54)
[2017-05-25] MEDS: AZITHROMYCIN 250 MG TAB PO SCH (09:55)
[2017-05-25] MEDS: BIFIDOBACTERIUM INFANTIS 4 MG CAP PO SCH (09:55)
[2017-05-25] MEDS: hydroCHLOROthiazide 12.5 MG CAP PO SCH (09:55)
[2017-05-25] MEDS: ENOXAPARIN SODIUM 40 MG/0.4 ML SYG SUBCU SCH (09:55)
[2017-05-25] MEDS: ALLOPURINOL 100 MG TAB PO SCH (09:55)
[2017-05-25] MEDS: TAMSULOSIN 0.4 MG CAP PO SCH (09:55)
[2017-05-25] MEDS: VALSARTAN 80 MG TAB PO SCH (09:55)
[2017-05-25] MEDS: METOPROLOL SUCCINATE XL 25 MG TAB PO SCH (09:55)
[2017-05-25] MEDS ORDERED: VANCOMYCIN PER PHARMACY IVPB SCH (11:30)
[2017-05-25] MEDS: cefTRIAXone SODIUM 2 GM in SODIUM CHL 0.9% 100ML MINI-BAG 100 ML IVPB SCH (11:44)
[2017-05-25] MEDS ORDERED: SODIUM CHL 0.9% 50ML MIN-BAG+ 50 ML IVPB ONE ×2 (11:50→19:51)
[2017-05-25] MEDS ORDERED: CEFEPIME 2 GM VIAL IVPB ONE ×2 (11:50→19:51)
[2017-05-25] MEDS: CEFEPIME 2 GM in SODIUM CHL 0.9% 50ML MIN-BAG+ 50 ML IVPB SCH ×2 (11:53→23:29)
[2017-05-25] MEDS ORDERED: VANCOMYCIN HCL INJ 1,000 MG VIAL IVPB ONE (15:54)
[2017-05-25] MEDS ORDERED: VANCOMYCIN HCL INJ 500 MG VIAL ONE (15:54)
[2017-05-25] MEDS ORDERED: SODIUM CHLORIDE 0.9% 250ML 250 ML ONE (15:54)
[2017-05-25] MEDS: ACETAMINOPHEN 325 MG TAB PO PRN (15:59)
[2017-05-25] MEDS ORDERED: VANCOMYCIN HCL INJ 1,000 MG, VANCOMYCIN HCL INJ 250 MG in SODIUM CHLORIDE 0.9% 250ML 25... IVPB SCH (16:00)
[2017-05-25] MEDS ORDERED: MAGNESIUM SULFATE PREMIX 2GM 2 GM in PREMIX BAG 1 BAG IVPB ONE (18:33)
[2017-05-25] MEDS ORDERED: MAGNESIUM SULFATE PREMIX 2GM 50 ML IVPB ONE (19:19)
--- NOTE | 2017-05-25 20:31 | PN ---
DATE: 05/25/17 SUPERVISING PHYSICIAN: Ever Granado M.D. SUBJECTIVE: The patient is sitting up in his hospital bed. He has no complaints of nausea, vomiting, diarrhea or constipation. We discussed his CAT scan at length as well as his antibiotic regimen over the next few days. I explained to him that I spoke with Dr. Tee, Infectious Diseases physician in [place], and we will be treating him aggressively with IV antibiotics over the next several days. He will not be discharged until he is fever free for over 48 hours. OBJECTIVE: VITAL SIGNS: T max 24 hours is 100.5, heart rate 88, blood pressure 143/70, respiratory rate 20, O2 sat is 93% on room air. RESPIRATORY: Essentially clear to auscultation bilaterally. CARDIAC: Regular rate and rhythm. GASTROINTESTINAL: Abdomen is soft, nondistended, non-tender. Bowel sounds are positive. EXTREMITIES: No cyanosis, clubbing or edema. NEUROLOGIC : He is awake, alert and oriented times three. LABORATORY: Blood sugars have run between 103 and 209. Electrolytes are basically within normal limits with the exception of his magnesium is slightly low at 1.7, BUN 20, creatinine 1.29. Preliminary blood cultures show no growth after 4 days. All other labs and films have been reviewed via the EMR. ASSESSMENT: 1. Left lower lobe pneumonia, community acquired, with preliminary blood cultures showing no growth. 2. Fever secondary to #1 with leukocytosis that has improved. Current urine culture shows enterococcus faecalis. He continues to spike a fever over the last few days. 3. Urinary tract infection with enterococcus faecalis with strong consideration for prostatitis as a differential. 4. Sepsis secondary to community acquired pneumonia as well as urinary tract infection and/or questionable prostatitis. Patient is has been on Rocephin and azithromycin as well as vancomycin. Per recommendations of Dr. Tee, will continue on vancomycin and change to Cefepime. 5. Hypertension. 6. Diabetes mellitus, type 2. 7. Renal insufficiency. 8. Polyuria/dysuria secondary to possible prostatitis and an enlarged prostate with an underlying urinary tract infection. PLAN: We will continue present supportive care. I spoke to Dr. Tee this morning. She recommended that the azithromycin and Ceftriaxone be discontinued and to continue the vancomycin as well as adding Cefepime. She recommends that the patient remain in the hospital until he is at least 48 hours without spiking a temperature greater than 100. She actually recommends that he be in the hospital until next Monday and at that point depending on his clinical picture, will decide on his antibiotics at discharge. She also recommended that a CT of the chest, abdomen and pelvis be done to rule out any other possible areas of infection. At this point, we will continue to follow him closely and followup as needed. Dr. Granado is the collaborating physician available for consultation. [facility][id number] [facility]
[2017-05-25] MEDS: ATORVASTATIN 20 MG TAB PO SCH (20:37)
[2017-05-25] MEDS: SODIUM CHLORIDE 0.9% (FLUSH) 10 ML SYG IV PRN (20:38)
--- NOTE | 2017-05-26 03:19 | CT ---
EXAM DESCRIPTION: Abdomen and pelvis without IV contrast: Computed Tomography. CLINICAL HISTORY: Fever of unknown origin. COMPARISON: Noncontrast CT scan of the chest on the same visit. TECHNIQUE: Spiral-axial scans 5.0 mm intervals through the abdomen and pelvis without oral or IV contrast. Coronal and sagittal 2.0 mm reconstructions. Total Exam DLP: 1060.67 mGy-cm. This exam was performed according to our departmental CT dose-optimization program which includes automated exposure control, adjustment of the mA and/or kV according to patient size and/or use of iterative reconstruction technique; to reduce radiation dose to as low as reasonably achievable (ALARA). FINDINGS: Liver, stomach, spleen, and adrenal glands: Long axis right lobe liver 17.5 cm, Normal density with no focal lesions and no ascites. Small calcifications in the spleen. Small gastric hiatal hernia. Thickening of the gastroduodenal duodenal junction and minimal distention with fluid. Duodenal bulb is enlarged. Minimal surrounding fatty stranding. Thickening of the mucosa of the proximal duodenum. Adrenal glands unremarkable. Pancreas, Gallbladder, and Ducts: Gallbladder and ducts negative. Fatty infiltration of the pancreas. Kidneys and Ureters: Multiple left renal cysts largest 5 cm lower pole. Low-density in the lower pole with pararenal fatty stranding. 1 mm stone in the mid left kidney and 2 mm stone inferior kidney with no hydronephrosis. Right kidney is small with long axis VII cm and cortical thinning and pararenal stranding. Posterior mid right renal cyst. Right hydroureter but no radiodense stones. Minimal density in the mid cortex of the kidney. No radiodense stones in the urinary bladder. Mesentery: Bilateral pararenal stranding. Bilateral fascial thickening in the pelvis and minimal fluid in the anterior peritoneal recess. Aorta: Ectasia and the outer caliber is not enlarged. Atherosclerotic calcification in the common origin of the celiac axis and SMA. Small Bowel: Contains gas and fluid with no distention or significant air-fluid levels. Terminal Ileum/Cecum: Normal caliber. Normal caliber of the appendix with no surrounding fatty stranding. Colon: Normal caliber containing taken material and gas scattered diverticula distally but no complications. Pelvic Organs: Prostate gland abutting the seminal vesicles and urinary bladder with normal density not significantly enlarged. No periprostatic fatty stranding. No radiodense stones in the urinary bladder. Spine and Bony Pelvis: Spondylosis L5-S1 and L1-2. Also in the included thoracic spine. Abdominal Wall/Back Soft Tissues: Bilateral inguinal axillary lymph nodes. Bilateral lower abdominal anterior injection sites. IMPRESSION: 1. Thickening of the gastroduodenal duodenal junction wall and mucosa and enlargement of the duodenal bulb thickening of mucosa in the proximal duodenum. This can represent nonspecific duodenitis or an ulcer. Consider endoscopic evaluation or upper GI barium examination. Minimal surrounding fatty stranding. 2. Mild hepatomegaly of the liver but normal density. 3. Multiple bilateral renal cysts. Low-density in the lower left kidney with fatty stranding could represent pyelonephritis. Nonobstructive left renal stones. Atrophy of the right kidney, minimal perirenal stranding, no hydronephrosis, but right hydroureter. No radiodense stones in the ureter or urinary bladder. 4. Normal size and density of the prostate gland. Minimal fatty stranding abutting the urinary bladder and minimal fluid in the anterior peritoneal reflection. 5. Sigmoid diverticulosis with no evidence of complications or inflammation. CRITICAL COMMUNICATION: The critical value was discussed directly by phone with Ms. Lashell Rogers nurse practitioner at approximately 1500 hours, on May 25, 2017. Electronically signed by: Gigi Morrissey MD 05/25/2017 8:44 PM CDT Workstation: [email or web address]
[2017-05-26] MEDS: FAMOTIDINE 20 MG TAB PO SCH (06:16)
--- NOTE | 2017-05-26 06:25 | CT ---
EXAM DESCRIPTION: CT chest without IV contrast. : Computed Tomography. CLINICAL HISTORY: Fever. COMPARISON: CT scan abdomen and pelvis without IV contrast on the same visit. TECHNIQUE: Spiral-axial scans at 5.0 mm intervals through the lungs and thorax without IV contrast. 2.0 mm lung algorithm axial reconstructions. Coronal and sagittal 2.0 Mm reconstructions. Total Exam DLP: 612.62 mGy-cm. This exam was performed according to our departmental dose-optimization program which includes automated exposure control, adjustment of the mA and/or kV according to patient size and/or use of iterative reconstruction technique; to reduce radiation dose to as low as reasonably achievable (ALARA). Technically difficult study due to patient body movement and rapid respiratory movements. FINDINGS: Bilateral basilar and dependent posterior atelectasis. Perihilar peribronchial wall cuffing. Minimal bilateral foci of pleural thickening and minimal pleural thickening at the base bilaterally. No abnormal nodules masses or infiltrates. 1 cm calcified nodule right lower lobe. Evaluation of the soft tissue Limited due to lack of IV contrast. Coronary artery calcifications. Atherosclerotic calcifications of the aortic arch and the proximal right innominate artery. Uniform density in the thyroid gland. No large soft tissue masses in the base of the neck mediastinum or hilum or bilateral axilla.. Multiple levels of spondylosis with thoracic foraminal narrowing at some levels. Subchondral degenerative changes in the right humeral head at the glenohumeral joint. IMPRESSION: Technically difficult study as described above. Posterior bilateral dependent atelectasis and bibasilar atelectasis. Calcified nodule right lower lobe, no imaging follow up recommended. Coronary artery calcifications and thoracic aorta Calcifications. Spine and joint degenerative changes Electronically signed by: Gigi Morrissey MD 05/26/2017 6:24 AM CDT Workstation: [email or web address]
[2017-05-26] MEDS: IPRATROPIUM/ALBUTEROL 3 ML VIAL NEB SCH ×4 (07:53→20:00)
[2017-05-26] MEDS: INSULIN LISPRO 100 UNITS/ML PEN SUBCU SCH ×4 (08:14→21:04)
[2017-05-26] MEDS: ASPIRIN (CHEWABLE) 81 MG TAB PO SCH (09:13)
[2017-05-26] MEDS: guaiFENesin ER TAB 600 MG TAB PO SCH ×2 (09:13→20:54)
[2017-05-26] MEDS: METOPROLOL SUCCINATE XL 25 MG TAB PO SCH (09:13)
[2017-05-26] MEDS: ALLOPURINOL 100 MG TAB PO SCH (09:13)
[2017-05-26] MEDS: TAMSULOSIN 0.4 MG CAP PO SCH (09:13)
[2017-05-26] MEDS: VALSARTAN 80 MG TAB PO SCH (09:13)
[2017-05-26] MEDS: hydroCHLOROthiazide 12.5 MG CAP PO SCH (09:13)
[2017-05-26] MEDS: BIFIDOBACTERIUM INFANTIS 4 MG CAP PO SCH (09:13)
[2017-05-26] MEDS: CALCIUM CARBONATE-VITAMIN D 500 MG TAB PO SCH (09:13)
[2017-05-26] MEDS: ENOXAPARIN SODIUM 40 MG/0.4 ML SYG SUBCU SCH (09:14)
[2017-05-26] MEDS ORDERED: CEFEPIME 2 GM VIAL IVPB ONE ×2 (11:33→19:37)
[2017-05-26] MEDS ORDERED: SODIUM CHL 0.9% 50ML MIN-BAG+ 50 ML IVPB ONE ×2 (11:33→19:36)
[2017-05-26] MEDS: CEFEPIME 2 GM in SODIUM CHL 0.9% 50ML MIN-BAG+ 50 ML IVPB SCH ×2 (12:31→23:38)
--- NOTE | 2017-05-26 13:14 | PN ---
SUPERVISING PHYSICIAN: Ever Granado MD DATE: 05/26/17 SUBJECTIVE: The patient is sitting up in his bed talking to his family. He continues to feel much better. His last temperature spike was yesterday afternoon. We discussed staying in the hospital until Monday until Dr. Tee, infectious disease physician could further evaluate his discharge plan. OBJECTIVE: VITAL SIGNS: T-max 24 hours 100.3, presently 98.6. Heart rate 90. Blood pressure 144/65. Respiratory rate 20. O2 saturation 95%on room air. RESPIRATORY: Essentially clear to auscultation bilaterally. CARDIAC: Regular rate and rhythm. GASTROINTESTINAL: Abdomen is soft, rounded, nontender. Bowel sounds are positive. EXTREMITIES: No cyanosis, clubbing or edema. NEUROLOGIC: Awake, alert and oriented times three. LABORATORY: Sputum culture is positive for Staphylococcus epidermitis. It is sensitive to vancomycin. He is presently on vancomycin. His final blood cultures show no growth after [address] of the chest from yesterday shows technically difficult study with posterior bilateral dependent atelectasis and bibasilar atelectasis, calcified nodule right lower lobe, no imaging followup recommended. Coronary artery calcifications and thoracic aortic calcification. Spine and join degenerative changes. Abdomen and pelvis CT shows 1) Thickening of the gastroduodenal-duodenal junction wall and mucosa and enlargement of the duodenal bulb, thickening of the mucosa in the proximal duodenum. Can represent nonspecific duodenitis or an ulcer. Consider endoscopic evaluation or upper GI barium exam. 2) Mild hepatomegaly of the liver but normal density. 3) Bilateral multiple renal cysts, nonobstructive left renal stone, atrophy of the right kidney. 4) Normal size and density of the prostate gland, minimal fatty stranding abutting the urinary bladder and minimal fluid in the anterior peritoneal reflexion. 5) Sigmoid diverticulosis with no evidence of complications or inflammation. All other labs and films have been reviewed via the EMR. ASSESSMENT: 1. Left lower lobe pneumonia, community acquired, with negative blood cultures and a sputum culture showing Staphylococcus epidermitis presently on vancomycin which it is sensitive to. 2. Fever secondary to #1 with leukocytosis that has resolved. Current urine culture shows enterococcus faecalis. His last fever spike was yesterday afternoon with a fever of 100.3. 3. Urinary tract infection with enterococcus faecalis with strong consideration for prostatitis as a differential. 4. Sepsis secondary to community acquired pneumonia as well as urinary tract infection and/or questionable prostatitis. Patient is presently on cefepime and vancomycin. 5. Hypertension. 6. Diabetes mellitus, type 2. 7. Renal insufficiency. 8. Polyuria/dysuria secondary to possible prostatitis and an enlarged prostate with an underlying urinary tract infection. 9. Questionable duodenitis versus duodenal ulcer. He will need endoscopic exam or barium swallow at discharge. PLAN: We will continue present supportive care. He will continue with his cefepime and vancomycin until Monday when his condition can be reported to Dr. Tee. She had recommended he stay in the hospital for IV antibiotics until he is at least 48 hours fever free. Recommendations for EGD or barium swallow on discharge due to the CT findings and possible duodenal ulcer. Will also prescribe a PPI on discharge. Continue good pulmonary hygiene. We will continue to monitor the patient closely and follow as needed. #[id number] [facility]
[2017-05-26] MEDS ORDERED: SODIUM CHLORIDE 0.9% 500ML 500 ML ONE (15:45)
[2017-05-26] MEDS ORDERED: VANCOMYCIN HCL INJ 1,000 MG VIAL IVPB ONE (15:45)
[2017-05-26] MEDS: VANCOMYCIN HCL INJ 1,750 MG in SODIUM CHLORIDE 0.9% 500ML 500 ML IVPB SCH (16:00)
[2017-05-26] MEDS: ATORVASTATIN 20 MG TAB PO SCH (20:53)
[2017-05-27] MEDS: IV SET AND CAP CHANGE INJ INJ SCH (06:17)
[2017-05-27] MEDS: FAMOTIDINE 20 MG TAB PO SCH (06:21)
[2017-05-27] MEDS: IPRATROPIUM/ALBUTEROL 3 ML VIAL NEB SCH ×4 (08:27→20:05)
[2017-05-27] MEDS: INSULIN LISPRO 100 UNITS/ML PEN SUBCU SCH ×4 (08:39→21:15)
[2017-05-27] MEDS: ASPIRIN (CHEWABLE) 81 MG TAB PO SCH (08:52)
[2017-05-27] MEDS: CALCIUM CARBONATE-VITAMIN D 500 MG TAB PO SCH (08:52)
[2017-05-27] MEDS: BIFIDOBACTERIUM INFANTIS 4 MG CAP PO SCH (08:52)
[2017-05-27] MEDS: hydroCHLOROthiazide 12.5 MG CAP PO SCH (08:52)
[2017-05-27] MEDS: VALSARTAN 80 MG TAB PO SCH (08:52)
[2017-05-27] MEDS: guaiFENesin ER TAB 600 MG TAB PO SCH ×2 (08:52→21:15)
[2017-05-27] MEDS: METOPROLOL SUCCINATE XL 25 MG TAB PO SCH (08:52)
[2017-05-27] MEDS: TAMSULOSIN 0.4 MG CAP PO SCH (08:52)
[2017-05-27] MEDS: ALLOPURINOL 100 MG TAB PO SCH (08:52)
[2017-05-27] MEDS: ENOXAPARIN SODIUM 40 MG/0.4 ML SYG SUBCU SCH (09:00)
[2017-05-27] MEDS ORDERED: CEFEPIME 2 GM VIAL IVPB ONE ×2 (12:05→19:23)
[2017-05-27] MEDS ORDERED: SODIUM CHL 0.9% 50ML MIN-BAG+ 50 ML IVPB ONE ×2 (12:05→19:23)
[2017-05-27] MEDS: CEFEPIME 2 GM in SODIUM CHL 0.9% 50ML MIN-BAG+ 50 ML IVPB SCH ×2 (12:13→23:33)
[2017-05-27] MEDS ORDERED: SODIUM CHLORIDE 0.9% 500ML 500 ML ONE (14:23)
[2017-05-27] MEDS ORDERED: VANCOMYCIN HCL INJ 1,000 MG VIAL IVPB ONE (14:24)
--- NOTE | 2017-05-27 15:13 | PN ---
DATE: 05/27/17 SUPERVISING PHYSICIAN: Ever Granado M.D. SUBJECTIVE: The patient has been up ambulatory, walking with his family this morning. He had a temperature noted on the . He has had no complications from diarrhea, nausea or vomiting. OBJECTIVE: VITAL SIGNS: T max 100.3 on 05/25/17. T max on the was 98.7. Pulse 90, blood pressure 152/77, respirations 16, satting 96% on room air. I's and O's show a negative balance of 1710 with 840 in, 2550 out. Weight is 78.4 kg. CHEST: Lungs are clear to auscultation bilaterally. HEART: Regular rate and rhythm. ABDOMEN: Soft, non-tender. Positive bowel sounds. EXTREMITIES: No clubbing, cyanosis or edema. NEUROLOGIC: He is alert and oriented times three. LABORATORY: No additional laboratories were completed today. His blood sugars ranged between 117 and 159. MICROBIOLOGY: No additional microbiology specimens submitted. As noted previously, last sputum culture showed normal chelo at 24 hours with a sputum culture on the showing Staphylococcus epidermidis sensitive to vancomycin. Urine culture showed no growth. Blood cultures remain negative after 5 days. First urine culture on the did show Enterococcus faecalis. The first culture that was negative was a catheterized specimen on 05/21/17. RADIOLOGY: No additional radiographic studies were completed. ASSESSMENT: 1. Left lower lobe pneumonia, community acquired, with blood cultures remaining negative since admission and sputum culture showing Staphylococcus epidermitis with the patient being on vancomycin and Cefepime showing improvement clinically. 2. Fever secondary to #1 with leukocytosis that has resolved with the patient having been afebrile now for 24 hours with cultures as noted above. 3. Urinary tract infection with initial cultures showing Enterococcus faecalis with questionable prostatitis. 4. Sepsis secondary to community acquired pneumonia as well as urinary tract infection and questionable prostatitis with the patient being on Cefepime and vancomycin. 5. Hypertension. 6. Diabetes mellitus, type 2, stable. 7. Renal insufficiency. 8. Polyuria/dysuria secondary to questionable prostatitis and enlarged prostate exacerbated by underlying urinary tract infection. 9. Concerns for duodenitis versus duodenal ulcer as noted on CT scan with recommendations for endoscopic exam or barium swallow at time of discharge. PLAN: Will continue with current antibiotics to include Cefepime and vancomycin. His labs have been stable. Will repeat those as needed. He is continuing to ambulate. He will continue on IV antibiotics at least until Monday at which time will need to discuss the case with Dr. Tee in the decision of discharging whether IV antibiotics are continued or antibiotics p.o. On discharge, he will also need an EGD or barium swallow at some point to followup those CT findings with possible duodenal ulcer. He remains on a PPI which will need to be continued to discharge. Will continue to encourage good pulmonary hygiene and ambulation. Until discharge which is anticipated on Monday, will continue to monitor and treat appropriately. #[id number] [facility]
[2017-05-27] MEDS: VANCOMYCIN HCL INJ 1,750 MG in SODIUM CHLORIDE 0.9% 500ML 500 ML IVPB SCH (17:01)
[2017-05-27] MEDS: ATORVASTATIN 20 MG TAB PO SCH (21:15)
[2017-05-28] MEDS: FAMOTIDINE 20 MG TAB PO SCH (06:12)
[2017-05-28] MEDS: IPRATROPIUM/ALBUTEROL 3 ML VIAL NEB SCH ×4 (07:20→20:20)
[2017-05-28] MEDS: INSULIN LISPRO 100 UNITS/ML PEN SUBCU SCH ×4 (07:30→21:17)
[2017-05-28] MEDS: ALLOPURINOL 100 MG TAB PO SCH (08:56)
[2017-05-28] MEDS: hydroCHLOROthiazide 12.5 MG CAP PO SCH (08:56)
[2017-05-28] MEDS: BIFIDOBACTERIUM INFANTIS 4 MG CAP PO SCH (08:56)
[2017-05-28] MEDS: guaiFENesin ER TAB 600 MG TAB PO SCH ×2 (08:57→20:31)
[2017-05-28] MEDS: TAMSULOSIN 0.4 MG CAP PO SCH (08:57)
[2017-05-28] MEDS: ASPIRIN (CHEWABLE) 81 MG TAB PO SCH (08:57)
[2017-05-28] MEDS: METOPROLOL SUCCINATE XL 25 MG TAB PO SCH (08:57)
[2017-05-28] MEDS: VALSARTAN 80 MG TAB PO SCH (08:57)
[2017-05-28] MEDS: CALCIUM CARBONATE-VITAMIN D 500 MG TAB PO SCH (08:57)
[2017-05-28] MEDS: ENOXAPARIN SODIUM 40 MG/0.4 ML SYG SUBCU SCH (08:57)
[2017-05-28] MEDS: ACETAMINOPHEN 325 MG TAB PO PRN (09:03)
[2017-05-28] MEDS ORDERED: SODIUM CHL 0.9% 50ML MIN-BAG+ 50 ML IVPB ONE ×2 (12:14→19:06)
[2017-05-28] MEDS ORDERED: CEFEPIME 2 GM VIAL IVPB ONE ×2 (12:14→19:06)
[2017-05-28] MEDS: CEFEPIME 2 GM in SODIUM CHL 0.9% 50ML MIN-BAG+ 50 ML IVPB SCH ×2 (12:15→23:06)
--- NOTE | 2017-05-28 14:10 | PN ---
DATE: 05/28/17 SUPERVISING PHYSICIAN: Ever Granado M.D. SUBJECTIVE: The patient continues to do well. He has been afebrile going on 48 hours. He has had no nausea, vomiting or diarrhea. He has been ambulating. . OBJECTIVE: VITAL SIGNS: Temperature 96.7 with T max temperature 99, pulse 90, blood pressure 162/88, respirations 18, saturation 98% on room air. I's and O's show a positive balance of 810 with 4550 in and 3750 out. Weight is 79.1 kg. CHEST: Lungs are clear to auscultation, just slightly diminished in the bases. HEART: Regular rate and rhythm. ABDOMEN: Soft, obese, non-tender. Positive bowel sounds. EXTREMITIES: No clubbing, cyanosis or edema. NEUROLOGIC: He is alert and oriented times three. LABORATORY: No additional laboratories other than bedside glucose completed today with blood sugars showing to be stable between 117 and 184. MICROBIOLOGY: No additional cultures are pending. Again, he had a sputum culture on the that showed a Staphylococcus epidermidis and repeat culture on the that showed normal chelo at 48 hours. He had an initial urine culture on the that showed enterococcus faecalis with a repeat culture on 05/21 with a catheter specimen that showed catalase positive cocci and some previous specimen. He had 2 sets of blood cultures that remained negative after 5 days. ASSESSMENT: 1. Left lower lobe pneumonia, community acquired, showing good improvement with current antibiotic therapy, community acquired with blood cultures remaining negative at 5 days and final sputum culture showing Staphylococcus epidermitis with the patient being on vancomycin and Cefepime. 2. Fever with unknown origin likely secondary to #1 and questionable prostatitis with patient now having been afebrile for 48 hours. 3. Urinary tract infection with concerns for prostatitis with final cultures showing Enterococcus faecalis. 4. Sepsis secondary to community acquired pneumonia as noted in #1 and urinary tract infection noted in #3, again questionable prostatitis with the patient being on Cefepime and vancomycin. 5. Hypertension, stable. 6. Diabetes mellitus, type 2, stable. 7. Renal insufficiency, stable. 8. Polyuria/dysuria prior to admission with concerns for prostatitis and enlarged prostate exacerbation and underlying urinary tract infection. 9. Concerns for duodenitis versus duodenal ulcer as noted on previous CT scan with recommendations for endoscopic exam or barium swallow after discharge in an outpatient setting. PLAN: Will continue with current antibiotics, Cefepime and vancomycin. His labs have been stable. Will follow his renal function as per protocol for vancomycin levels. He will continue with his IV antibiotics through today and will need to touch base with Dr. Tee with her number being [phone] to assist in the decision on continuation of antibiotic coverage as to whether the patient can go home on p.o. antibiotics or continue IV therapy. He will need a followup on the EGD and varium swallow and CT findings, possible duodenal ulcer which he has been started on a PPI and will need to continue at discharge. He will also need close followup with Dr. Salazar and possibly Urology in regards to prostatitis concern. Will anticipate hopefully discharging tomorrow, again, outpatient therapy decision pending for continued coverage with antibiotic therapy. Until the, we will continue to monitor and treat appropriately. #[id number] [facility]
[2017-05-28] MEDS ORDERED: VANCOMYCIN HCL INJ 1,000 MG VIAL IVPB ONE (14:46)
[2017-05-28] MEDS ORDERED: SODIUM CHLORIDE 0.9% 500ML 500 ML ONE (14:46)
[2017-05-28] MEDS: VANCOMYCIN HCL INJ 1,750 MG in SODIUM CHLORIDE 0.9% 500ML 500 ML IVPB SCH (16:22)
[2017-05-28] MEDS: ATORVASTATIN 20 MG TAB PO SCH (20:31)
[2017-05-29] MEDS: FAMOTIDINE 20 MG TAB PO SCH (06:04)
[2017-05-29] MEDS: INSULIN LISPRO 100 UNITS/ML PEN SUBCU SCH ×4 (07:39→16:57)
[2017-05-29] MEDS: IPRATROPIUM/ALBUTEROL 3 ML VIAL NEB SCH ×4 (08:10→20:39)
[2017-05-29] MEDS: ALLOPURINOL 100 MG TAB PO SCH (08:42)
[2017-05-29] MEDS: ASPIRIN (CHEWABLE) 81 MG TAB PO SCH (08:42)
[2017-05-29] MEDS: METOPROLOL SUCCINATE XL 25 MG TAB PO SCH (08:42)
[2017-05-29] MEDS: hydroCHLOROthiazide 12.5 MG CAP PO SCH (08:42)
[2017-05-29] MEDS: TAMSULOSIN 0.4 MG CAP PO SCH (08:42)
[2017-05-29] MEDS: BIFIDOBACTERIUM INFANTIS 4 MG CAP PO SCH (08:42)
[2017-05-29] MEDS: VALSARTAN 80 MG TAB PO SCH (08:42)
[2017-05-29] MEDS: CALCIUM CARBONATE-VITAMIN D 500 MG TAB PO SCH (08:42)
[2017-05-29] MEDS: guaiFENesin ER TAB 600 MG TAB PO SCH (08:43)
[2017-05-29] MEDS: ENOXAPARIN SODIUM 40 MG/0.4 ML SYG SUBCU SCH (08:43)
[2017-05-29] MEDS ORDERED: SODIUM CHL 0.9% 50ML MIN-BAG+ 50 ML IVPB ONE ×2 (11:16→11:34)
[2017-05-29] MEDS ORDERED: CEFEPIME 2 GM VIAL IVPB ONE ×2 (11:16→11:35)
[2017-05-29] MEDS: CEFEPIME 2 GM in SODIUM CHL 0.9% 50ML MIN-BAG+ 50 ML IVPB SCH (11:39)
[2017-05-29 14:20] VITALS: O2SAT 98
[2017-05-29] MEDS ORDERED: SODIUM CHLORIDE 0.9% 500ML 500 ML ONE (15:58)
[2017-05-29] MEDS ORDERED: VANCOMYCIN HCL INJ 1,000 MG VIAL IVPB ONE (15:59)
[2017-05-29] MEDS: VANCOMYCIN HCL INJ 1,750 MG in SODIUM CHLORIDE 0.9% 500ML 500 ML IVPB SCH (16:12)
[2017-05-29 18:33] VITALS: BP 135/74; TEMP 98.6
--- NOTE | 2017-05-30 09:13 | DS ---
SUPERVISING PHYSICIAN: Chava Guo MD ADMISSION DIAGNOSIS: 1. Fever of unknown origin with history of prostatitis in the past. 2. Leukocytosis secondary to #1. Sputum culture, urine culture and Streptococcal culture pending. 3. Sepsis secondary to unknown infectious source. 4. Hypertension. 5. Diabetes mellitus, type 2. 6. Renal insufficiency. DISCHARGE DIAGNOSIS: 1. Enterococcus faecalis urinary tract infection. 2. Staphylococcal epidermitis pneumonia. 3. Sepsis secondary to #1 and #2. 4. Hypertension, stable. 5. Diabetes mellitus, type 2, stable. 6. Renal insufficiency, improved. 7. Possible prostatitis exacerbation. 8. Possible gastritis/duodenitis. HOSPITAL COURSE: Mr. Ahumada is a 72-year-old male patient who presented to the Emergency Room complaining of some fever and some confusion that occurred prior to his arrival to the Emergency Room. His had noted that he was not acting himself. He ran a fever as high as 103.4. Strep screen was negative. He was evaluated by the Emergency Room physician and treated for possible strep and discharged. He came back to the Emergency Room 3 to 4 hours later with continued fever and more confusion. Due to these findings, the patient was admitted for fever of unknown origin. Multiple cultures were done including sputum, blood and urine. Over the course of the admission, the patient was treated with cefepime and vancomycin. These eventually grew out the bacteria as seen above, the enterococcal urinary tract infection as well as Staphylococcal infection with sputum. Sensitivities were reviewed and discussed with Dr. Tee from [place], Infectious Disease. Additionally, throughout his admission, he was given fluids as well as the antibiotics and mentation improved. Step-guerra throughout the admission, his clinical status improved. Initially, he came in with a 12.1 white count which went as high as 18.2, but then subsequently started to improve and on 05/26/17 was 8.3. He has continued to be without fever for greater than 48 hours at this point and mentation is normal. I did contact Dr. Tee on day of discharge and she suggested the patient be on vancomycin for a total of 2 weeks. Given the patient started it 8 days ago including today, we did a trough today and are going to discharge him with 6 additional days for a total of 14 days of vancomycin. Pharmacy is dosing this. Next dose will be tomorrow at 4 o'clock. The patient will followup with Dr. Salazar in one to two weeks. NEW PRESCRIPTIONS: 1. Protonix 40 mg daily. 2. Flomax 0.4 mg p.o. daily. DIET: Per regular diet. ACTIVITY: As tolerated. DISCHARGE INSTRUCTIONS: Instructions for daily vancomycin infusions starting tomorrow at 4 o'clock in the afternoon. #[id number] [facility]
== END 2017-05-29 21:00 | disposition home or self-care (01) | DRG 871 ==
LOC: ER 22:41 → MS 05-21 00:42 → OBSVTOIN 05-21 00:42
PROVIDERS: ADMIT Nurse Practitioner Family; ATTEND Nurse Practitioner
DX: A41.81 Sepsis due to Enterococcus (principal); J15.20 Pneumonia due to staphylococcus, unspecified; N39.0 Urinary tract infection, site not specified; A41.1 Sepsis due to other specified staphylococcus; I10 Essential (primary) hypertension; E11.9 Type 2 diabetes mellitus without complications; N28.9 Disorder of kidney and ureter, unspecified; N41.9 Inflammatory disease of prostate, unspecified; I25.10 Atherosclerotic heart disease of native coronary artery without angina pectoris; M10.9 Gout, unspecified; Z79.84 Long term (current) use of oral hypoglycemic drugs; Z85.828 Personal history of other malignant neoplasm of skin; Z79.82 Long term (current) use of aspirin; E86.0 Dehydration; N40.0 Benign prostatic hyperplasia without lower urinary tract symptoms

== ENCOUNTER → 2017-07-05 | Outpatient (CLI) | payer MEDICARE, OTHER | LOC: LAB.O 14:00 | PROVIDERS: ATTEND Urology | DX: R31.0 Gross hematuria (principal); R97.20 Elevated prostate specific antigen [PSA]; N13.30 Unspecified hydronephrosis ==

== ENCOUNTER → 2017-07-06 | Outpatient (CLI) | payer MEDICARE, OTHER ==
[~2017-07-06] MED LIST: diphenhydrAMINE HCL 50 MG/ML VIAL ONE
--- NOTE | 2017-07-06 16:30 | RAD ---
EXAM DESCRIPTION: IVP Intravenous Pyelogram CLINICAL HISTORY: 72 years Male, HYDRONEPHROSIS. Bilateral renal cysts. COMPARISON: CT scan of abdomen and pelvis without IV contrast 05/26/2015. TECHNIQUE: Supine AP pharmacy associate image of the abdomen. Nonionic IV contrast injected followed by immediate AP kidneys. Five minute Supine AP abdomen and pelvis. 10 minute Bilateral supine oblique AP abdomen and pelvis. 10 minute AP pelvis. 15 minute AP supine abdomen and pelvis. 20 minute AP prone abdomen and pelvis. Post void AP supine abdomen and pelvis. Approximately 1 minute after IV contrast was given, patient complained of scratching in throat, with minimal coughing and sneezing. Tingling in bilateral ears. No skin urticaria, no shortness of breath, no difficulty swallowing. Patient was given 25 mg of Benadryl IV. Symptoms subsided and approximately 5 minutes. Patient with no complaints prior to being driven home by spouse. FINDINGS: On the preliminary pharmacy associate film, there are radiodensities overlying both kidneys but also overlying fecal matter in the colon. Bilateral calcifications in the pelvis are most likely vascular. Immediately after IV contrast given, minimal bilateral symmetric nephrograms. On following images, a lateral calyces are unremarkable except for dilation in the upper collecting system of the left kidney. On subsequent images, ureters are visualized symmetrically and are normal caliber with no mass effect. More images show no mass effect on the collecting systems of the kidneys or along the ureters. The upper calyces on the left kidney remain dilated. No mass effect or intrinsic defect in the urinary bladder. After voiding, distal ureters are normal caliber.. IMPRESSION: IVP showing persistent dilation of calyx in upper collecting system of the left kidney. No filling defect or mass effect. Remaining bilaterally in the kidneys are unremarkable with no hydronephrosis. No mass effect of the bilateral ureters with normal caliber. No mass effect on the urinary bladder or intrinsic defect.. Electronically signed by: Gigi Morrissey MD 07/06/2017 4:28 PM CDT
== END ==
LOC: RAD 09:10
PROVIDERS: ATTEND Urology
DX: N13.30 Unspecified hydronephrosis (principal)
CPT/HCPCS: 74400; J1200

== ENCOUNTER → 2017-11-10 | Outpatient (CLI) | payer MEDICARE, OTHER ==
--- NOTE | 2017-11-10 12:27 | MRI ---
EXAM DESCRIPTION: Lumbar Spine w/o Contrast : Magnetic Resonance Imaging. CLINICAL HISTORY: BACK PAIN COMPARISON: None. TECHNIQUE: Multiplanar, multiple standard sequences, non contrast MRI, lumbar spine. FINDINGS: L5-S1: Disc desiccation and moderate disc space loss. Schmorl's nodes inferior L5 endplate. 3 mm retrolisthesis with disc bulge. Mild narrowing of the bilateral subarticular recesses. Mild canal narrowing. Moderate right foraminal narrowing and borderline left foraminal stenosis. Lateral flavum ligament hypertrophy and minimal facet arthrosis. L4-5: Normal signal in the disc and disc space preserved. Mild flavum ligament hypertrophy bilaterally and minimal facet arthrosis. Bilateral moderate foraminal narrowing. Canal is patent. L3-4 : Normal signal in the disc and disc space preserved. Minimal hypertrophy of the flavum ligaments. Facets are negative. Canal and bilateral foramina are patent. L2-3: Normal signal in the disc and disc space preserved. Posterior elements unremarkable. Canal and foramina are patent. L1-2: Disc desiccation and minimal disc space loss. Anterior bulging and endplate ridging. Schmorl's nodes in the inferior L1 endplate. Minimal posterior bulge. Posterior elements unremarkable. Mild canal narrowing. Bilateral foramina are patent. T12-L1: Normal signal in the disc and disc space preserved. Conus terminates at L1. Posterior elements unremarkable. Anterior hyperintense T1 and T2 signal in the inferior T12 endplate. Canal and foramina are patent. Anatomic alignment and curvature Paravertebral soft tissues almost 4 cm cyst which may be part of a larger cystic mass measuring 6 to 7 cm in the left kidney. Small cyst versus solid mass in the upper pole of the right kidney.. Normal marrow signal in the remaining vertebral bodies and the posterior elements. Vertebral bodies are not compressed at any level. IMPRESSION: 1. L5-S1 disc desiccation and disc space loss. Schmorl's node in the inferior L5 endplate. Retrolisthesis. Narrowing bilateral subarticular recesses. Borderline left foraminal stenosis. 2. Spondylosis L1-2 with posterior disc bulge but no canal or foraminal stenosis. 3. Possible cyst in the upper pole right kidney and large cyst or cystic mass in the left kidney. Cysts were seen on prior ultrasound August 2013. Consider follow-up bilateral renal ultrasound. Electronically signed by: Gigi Morrissey MD 11/10/2017 12:26 PM CDT
== END ==
LOC: MRI 08:00
PROVIDERS: ATTEND Urology
DX: M54.10 Radiculopathy, site unspecified (principal); M51.46 Schmorl's nodes, lumbar region; M47.896 Other spondylosis, lumbar region; M51.26 Other intervertebral disc displacement, lumbar region; N28.1 Cyst of kidney, acquired

== ENCOUNTER → 2017-11-28 | Outpatient (CLI) | payer MEDICARE, OTHER | LOC: GMAL 13:35 | PROVIDERS: ATTEND Family Medicine | DX: M10.9 Gout, unspecified (principal) ==

== ENCOUNTER 2017-12-21 08:10 | Day surgery (SDC) | payer MEDICARE, OTHER ==
[~2017-12-21 08:10] MED LIST changes: +LIDOCAINE 1% 10 ML VIAL INJ ONE; +PROPOFOL 200 MG/20 ML VIAL IV ONE; -diphenhydrAMINE HCL 50 MG/ML VIAL ONE
[2017-12-21] MEDS ORDERED: LACTATED RINGERS 1,000 ML ONE (09:34)
[2017-12-21 11:25] VITALS: BP 125/77; TEMP 97; O2SAT 100
--- NOTE | 2017-12-21 11:26 | OP ---
DATE OF PROCEDURE: 12/21/17 PREPROCEDURE DIAGNOSIS: 1. Colorectal cancer screening. POSTPROCEDURE DIAGNOSIS: 1. Diminutive ascending colon polyp, removed, not retrieved. 2. Internal hemorrhoids. PROCEDURE: 1. Colonoscopy. SURGEON: Atif Hein MD COMPLICATIONS: No immediate complications. SEDATION: The patient was sedated via IV propofol by the Anesthesia Department. CONSENT: Prior to the procedure, risks, benefits and alternatives to the therapy were discussed with the patient. The risks included bleeding, infection , perforation and . The patient agreed to the procedure and signed a consent. PREPROCEDURE ANESTHESIA ASSESSMENT: An examination revealed no contraindication to sedation. Airway examination demonstrated a Mallampati class type 2, ASA grade assessment type 2. Throughout the procedure, the patient's blood pressure and additional vital signs were closely monitored. PROCEDURE: The patient was placed in the left lateral decubitus position and a rectal examination was performed. The rectal examination was within normal limits. The Olympus colonoscope was passed in the anus, rectum, traversing the colon to the level of the cecum as identified by the appendiceal orifice. The scope was retracted and the mucosa was visualized. The entirety of the exam was performed under direct visualization. Retroflexion was performed in the rectum. Preparation quality was good. The withdrawal time was greater than 6 minutes. The patient tolerated the procedure well. FINDINGS: 1. A diminutive polyp was found in the ascending colon. This was removed, but unable to retrieve given the small size of the polyp. 2. Medium sized non-bleeding internal hemorrhoids were seen in retroflexion in the rectum. 3. Otherwise, the exam was unremarkable. RECOMMENDATION: 1. Return the patient home. 2. Resume previous diet. 3. Repeat colonoscopy in the next 5 years. 4. Followup with referring physician/provider. 5. Return to my office p.r.n. 5. All questions and findings were discussed with the patient and family members. #[id number] [facility]
== END 2017-12-21 11:10 | disposition home or self-care (01) ==
LOC: AMB 08:10
PROVIDERS: ATTEND Internal Medicine Gastroenterology
DX: Z12.11 Encounter for screening for malignant neoplasm of colon (principal); D12.2 Benign neoplasm of ascending colon; K64.8 Other hemorrhoids; I10 Essential (primary) hypertension; E11.9 Type 2 diabetes mellitus without complications; E66.9 Obesity, unspecified; Z86.010 Personal history of colon polyps; Z91.041 Radiographic dye allergy status; Z79.84 Long term (current) use of oral hypoglycemic drugs; Z79.899 Other long term (current) drug therapy
CPT/HCPCS: 00812; 36416; 82948; G0105; J3490; J7120

== ENCOUNTER → 2018-03-22 | Outpatient (CLI) | payer MEDICARE, OTHER ==
--- NOTE | 2018-03-22 16:43 | US ---
EXAM DESCRIPTION: Renal: Ultrasound. CLINICAL HISTORY: 72 years Male RENAL CYST seen on prior lumbar MRI scan in November [address] scan of the abdomen 05/25/2017. IVP 07/06/2017. COMPARISON: Lumbar MRI scan November 2017. IVP June 2017. CT scan of the abdomen May 2017. TECHNIQUE: Transcutaneous scanning: Two-dimensional and Doppler modes. FINDINGS: Right kidney measures 7.6 x 4.0 x 2.8 cm cm; mid-renal cortical thickness 10 mm. . Increased echogenicity No hydronephrosis 9.4 mm echogenic stone. Lobulated contour of the kidney with no perinephric fluid. Normal vascularity. Proximal ureter not visualized. Left kidney measures 12.2 x 5.8 x 5.3 cm; mid-renal cortical thickness normal.. Multiple cysts. Largest cyst measure 5.2 cm, 3.6 cm, and 1.1 cm. No hydronephrosis. 6.3 mm echogenic stones. Lobulated contour of the kidney , with cortical cysts, with no perinephric fluid. Normal vascularity.. Proximal ureter not visualized. Urinary bladder not visualized. Abdominal aorta: Normal caliber approximately 1.8 cm. IMPRESSION: 1. Small right kidney with cortical thinning and increased cortical echogenicity could indicate renal vascular disease or other medical process. Capsule is also lobulated. 9 mm stone and no hydronephrosis. Not seen on prior CT scan. 2. Multiple cysts left kidney with normal cortical thickness. 6 mm stone but no hydronephrosis. Not seen on prior CT scan. Electronically signed by: Gigi Morrissey MD 03/22/2018 4:41 PM [facility]
== END ==
LOC: US 08:00
PROVIDERS: ATTEND Urology
DX: N28.1 Cyst of kidney, acquired (principal); N20.0 Calculus of kidney

== ENCOUNTER → 2018-05-03 | Outpatient (CLI) | payer MEDICARE, OTHER | LOC: GMAL 11:59 | PROVIDERS: ATTEND Family Medicine | DX: E53.8 Deficiency of other specified B group vitamins (principal); E55.9 Vitamin D deficiency, unspecified ==

== ENCOUNTER → 2018-11-12 | Outpatient (CLI) | payer MEDICARE, OTHER | LOC: GMAL 14:12 | PROVIDERS: ATTEND Family Medicine | DX: E53.8 Deficiency of other specified B group vitamins (principal); D50.8 Other iron deficiency anemias; D64.89 Other specified anemias ==

== ENCOUNTER → 2018-11-14 | Outpatient (CLI) | payer MEDICARE, OTHER ==
--- NOTE | 2018-11-15 07:28 | RAD ---
EXAM DESCRIPTION: XR ABDOMEN 1 VIEW (KUB) CLINICAL HISTORY: KIDNEY STONES COMPARISON: None Available. TECHNIQUE: KUB FINDINGS: Single view of the abdomen demonstrates moderate stool in the right flank region. There is questionably a subtle stone overlying the mid left kidney in the upper portion of the image. The right kidney is poorly visualized. Right-sided pelvic phleboliths are noted. No obstruction or ileus or dilation of the bowel is seen. IMPRESSION: Questionable subtle stone overlying the mid left kidney with poor visualization of the right kidney. Otherwise negative abdomen one view. Electronically signed by: Ever Burns MD 11/15/2018 7:27 AM CDT
== END ==
LOC: RAD 13:25
PROVIDERS: ATTEND Urology
DX: N20.0 Calculus of kidney (principal)

== ENCOUNTER → 2019-02-11 | Outpatient (CLI) | payer MEDICARE, OTHER | LOC: GMAL 10:54 | PROVIDERS: ATTEND Family Medicine | DX: D50.8 Other iron deficiency anemias (principal); E11.9 Type 2 diabetes mellitus without complications; R94.5 Abnormal results of liver function studies; Z12.5 Encounter for screening for malignant neoplasm of prostate; Z79.899 Other long term (current) drug therapy | CPT/HCPCS: 82728; 83540; 83550; G0103 ==

== ENCOUNTER → 2019-08-07 | Outpatient (CLI) | payer MEDICARE, OTHER | LOC: GMAL 10:55 | PROVIDERS: ATTEND Family Medicine | DX: D50.8 Other iron deficiency anemias (principal); I10 Essential (primary) hypertension; E11.9 Type 2 diabetes mellitus without complications; E78.49 Other hyperlipidemia ==

== ENCOUNTER → 2019-11-11 | Outpatient (CLI) | payer MEDICARE, OTHER | LOC: GMAL 14:22 | PROVIDERS: ATTEND Family Medicine | DX: M10.9 Gout, unspecified (principal); E11.9 Type 2 diabetes mellitus without complications; E78.49 Other hyperlipidemia; Z79.899 Other long term (current) drug therapy ==